=== PATIENT | female | born 1930 | race Caucasian/White ===

== ENCOUNTER 2017-04-04 12:36 | Inpatient (IN) | payer OTHER, BC ==
--- NOTE | 2017-04-04 12:52 | PDOC ---
History of Present Illness - General History Source: Family Exam Limitations: Dementia - History of Present Illness Initial Comments: 04/04/17 13:00 The patient is an 86-year-old woman, accompanied by her two sons, with a significant past medical history of Alzheimers dementia, hypertension and diabetes mellitus who was advised to present to the emergency department by her PMD, Dr. Micah Gauthier, via EMS for further evaluation of AMS. Information was obtained by patients sons, who lives with the patient and take care of her daily. As per son, the patient, at baseline, is typically alert and oriented and can perform some tasks at home. She is also a little ru and confused, at baseline, but they attribute this to her history of Alzheimers dementia. Approximately 3 days ago, the patient was noted to have a mild intermittent cough with yellow sputum with associated loss of appetite, but was still her normal self. Approximately 2 days ago, the patient was noted to be extremely weak, to the point where she did not transfer herself from chair to chair, and just stayed sitting down and feeling weak all day- which is atypical for the patient. She was also noted to shake. Patients PMD was called, for which he advised to give the patient some sugar. Chocolate and other sugary foods were given to the patient, and as per son, the patient was noted some improvement, as she was at her baseline state post sugar. This morning, the patient was noted to have similar symptoms, as the day prior, but worsen, as the patient now keeps her eyes closed and is more disoriented, as per family. She has also been noted to fall a lot at home especially when she stands without assistance. Patient's BGM on ER arrival was 259. Patient states that she feels lightheaded, Sons also note patient has not been eating/drinking as usual. No pain or other complaints including cp, abd pain, back pain, fever/chills, n/v, dysuria, diarrhea, melena, bpr. Allergies: No Known Drug Allergies. Past Surgical History: None reported Social History: Retired. No tobacco, EtOH and recreational drug use. Primary Care Physician: Dr. Micah Gauthier <Chloé Sandhu - Last Filed: 04/04/17 16:39> <Aubrey Thomson - Last Filed: 04/04/17 16:50> - General Chief Complaint: Altered Mental Status Stated Complaint: SUGAR PROBLEM Time Seen by Provider: 04/04/17 12:42 Past History <Chloé Sandhu - Last Filed: 04/04/17 16:39> - Past Medical History Dementia: Yes (ALZHEIMERS.) Diabetes: Yes HTN: Yes - Psycho/Social/Smoking Cessation Hx Anxiety: No Suicidal Ideation: No Smoking History: Current every day smoker Number of Cigarettes Smoked Daily: 5 Information on smoking cessation initiated: No Hx Alcohol Use: No Drug/Substance Use Hx: No Substance Use Type: None <BertoAubrey smith - Last Filed: 04/04/17 16:50> - Past Medical History Allergies/Adverse Reactions: Allergies Allergy/AdvReac Type Severity Reaction Status Date / Time No Known Allergies Allergy Verified 04/04/17 12:38 Home Medications: Ambulatory Orders Amlodipine Besylate [Norvasc -] 2.5 mg PO DAILY 04/04/17 Calcium Carbonate [Calcium] 10 mg PO DAILY 04/04/17 Lisinopril [Prinivil] 5 mg PO DAILY 04/04/17 Memantine HCl [Namenda -] 10 mg PO BID 04/04/17 Metformin HCl [Glucophage -] 500 mg PO BID 04/04/17 Oxybutynin Chloride [Ditropan -] 5 mg PO DAILY 04/04/17 Review of Systems - Review of Systems Able to Perform ROS?: Yes Comments:: 04/04/17 13:00 May be limited due to dementia Constitutional - + decreased appetite,shaky, generally weak no reported Fever, Chills, HEENT: no reported vision changes, sore throat Respiratory: +mild cough no reported sob, hemoptysis Cardiac: no reported chest pain, palpitations, light headedness, leg swelling Abd/GI: no reported abd pain, nausea, vomiting, blood per rectum, melena, diarrhea : no reported dysuria, frequency, discharge Musculskelatal - no reported back pain, joint swelling skin - no reported bruising, erythema, rash neurological: no reported headache, numbness, focal weakness, tingling, ataxia, hematologic: no reported anemia, easy bruising, easy bleeding <Chloé Sandhu - Last Filed: 04/04/17 16:39> *Physical Exam - Vital Signs Last Vital Signs Temp Pulse Resp BP Pulse Ox 74 18 108/54 92 L 04/04/17 12:36 04/04/17 12:36 04/04/17 12:36 04/04/17 12:36 - Physical Exam Comments: 04/04/17 13:00 GENERAL: The patient is awake, alert, and oriented x 2, Nontoxic - in no acute distress. HEAD: Normocephalic, atraumatic. EYES: extraocular movements intact, sclera anicteric, conjunctiva clear. ENT: Normal voice, dry mucous membranes with cracked lips NECK: Normal range of motion, supple LUNGS: Distant breath sounds, without audible wheezing/rales HEART: Regular rate and rhythm, normal S1 and S2 without murmur, rub or gallop. ABDOMEN: Soft, nontender, normoactive bowel sounds. No guarding, no rebound. No CVA tenderness EXTREMITIES: Normal range of motion, no edema. NEUROLOGICAL: No facial assymetry, Normal speech, moving all 4 extremities symmetrically. PSYCH: Normal mood, normal affect. SKIN: Warm, Dry, normal turgor. <Chléo Sandhu - Last Filed: 04/04/17 16:39> - Vital Signs Last Vital Signs Temp Pulse Resp BP Pulse Ox 74 18 108/54 92 L 04/04/17 12:36 04/04/17 12:36 04/04/17 12:36 04/04/17 12:36 <Aubrey Thomson - Last Filed: 04/04/17 16:50> Heart Score/ECG Review - ECG Impressions Comment:: 04/04/17 15:32 Twelve-lead EKG was performed and reviewed by me. There is normal sinus rhythm with a normal rate. Rate of 66 The axis is normal. The intervals are normal. There are no ST or T wave abnormalities. <Aubrey Thomson - Last Filed: 04/04/17 16:50> ED Treatment Course - LABORATORY CBC & Chemistry Diagram: 04/04/17 13:40 04/04/17 13:40 - RADIOLOGY Radiograph Interpretation: 04/04/17 14:12 EXAM: RAD/CHEST X-RAY PORTABLE Interpreted by Dr. Mario George IMPRESSION: A single view reveals rotation to the left, weak inspiration, sclerotic knob, normal joshua, normal heart and some left base atelectasis. The angles are sharp and the soft tissues are intact. There are degenerative changes. EXAM: CT/HEAD CT WITHOUT CONTRAST Interpreted by Dr. Maryana Dickson IMPRESSION: CT scan of the brain without intravenous contrast Since 05/21/2016 there remains generalized volume loss with moderate ventricular dilatation and mild chronic microvascular ischemic changes. No mass lesion, gross acute infarct or intracranial hemorrhage is identified. There is no shift of the midline structures. Calcification of the cavernous carotid arteries are present. Visualized paranasal sinuses and mastoid air cells are well aerated. The calvarium is intact <Chloé Sandhu - Last Filed: 04/04/17 16:39> - LABORATORY CBC & Chemistry Diagram: 04/04/17 13:40 04/04/17 13:40 <Aubrey Thomson - Last Filed: 04/04/17 16:50> Medical Decision Making - Medical Decision Making 04/04/17 16:[address] Micah Gauthier. <Chloé Sandhu - Last Filed: 04/04/17 16:39> - Medical Decision Making 04/04/17 13:04 86y F hx of htn, dementia, dm, presents with AMS - the pt was noted to be more confused and shaky over the psat 2-3 days, family called dr. gauthier who thought it might be her blood sugar and recommended some candy, which seemed to improve sypmtoms, but today the pt was the same so they came to the ED for evaluation. The pt denies any acute complaints including fever/chills, cough, n/ v, abd pain, back pain, headache, ddysuria/diarrhea. on exam the pt is aox2, with dry mmm, but otherwise fairly unremarkable and nonfocal exam. intitial BGM was 250s. differential for the pts sypmtoms includes occult infection, metabolic derangement, cva will ck cbc, cmp, trops, ua, cxr, will give fluids for hydratoin as pt appears dry will ck vbg 04/04/17 16:35 pt noted to have a leukoctysosi to 18 UA shows many bacteria but few rbc/wbc, and this was a cathed specimen --> there is a question whther the pt may have recently been on abx will discuss w/ dr. Gauthier bun/cr elevated c/w prerenal azotemia - will cntinue to hydrate cxr shows atelectasis 04/04/17 16:[address] hwang agree with management and stable for [facility] Case discussed in detail with admitting physician including history, physical exam and ancillary studies. Admitting physician has assumed care for the patient, will follow all pending diagnostics and will complete the evaluation and treatment. <Aubrey Thomson - Last Filed: 04/04/17 16:50> *DC/Admit/Observation/Transfer - Attestations Scribe Attestion: 04/04/17 13:00 Documentation prepared by Chloé Sandhu, acting as medical doctor md for Aubrey Thomson MD. <Chloé Sandhu - Last Filed: 04/04/17 16:39> - Discharge Dispostion Admit: Yes <Aubrey Thomson - Last Filed: 04/04/17 16:50> Diagnosis at time of Disposition: Prerenal azotemia Failure to thrive Qualifiers: Failure to thrive age range: in adult Qualified Code(s): R62.7 - Adult failure to thrive - Referrals Referrals: Micah Gauthier MD [Primary Care Provider] -
[2017-04-04] MEDS ORDERED: SODIUM CHLORIDE 500 ML IV STA ×3 (13:04→21:35)
[2017-04-04 13:35] LABS: VENOUS BLOOD GAS HCO3 26.8 meq/L (19-25); VENOUS PH 7.36 (7.32-7.42)
[2017-04-04 13:56] LABS: BASOPHIL 0.1 % (0-2.0); MCH 25.8 pg (25.7-33.7); MCHC 31.5 g/dl (32.0-36.0); MEAN CELL VOLUME 81.7 fl (80-96); MEAN PLT VOLUME 8.7 fl (7.5-11.1); NEUTROPHILS 80.9 % (42.8-82.8); PLATELET COUNT 232 K/MM3 (134-434); RDW 15.7 % (11.6-15.6); WHITE BLOOD COUNT 18.6 K/mm3 (4.0-10.0)
[2017-04-04 14:09] LABS: INR 1.14 (0.82-1.09); PROTHROMBIN TIME (PATIENT) 12.6 SEC (9.98-11.88)
[2017-04-04 14:22] LABS: ALBUMIN 3.9 g/dl (3.4-5.0); CALCIUM 9.5 mg/dL (8.5-10.1); COCKROFT - GAULT 17.2805; CREATININE 1.7 mg/dL (0.55-1.02); MAGNESIUM 1.8 mg/dL (1.8-2.4)
[2017-04-04 14:27] LABS: BILIRUBIN,TOTAL 0.6 mg/dL (0.2-1.0); TROPONIN I 0.02 ng/ml (0.00-0.05)
[2017-04-04 14:48] LABS: THYROID STIMULATING HORMONE 1.41 uIU/ml (0.358-3.74)
[2017-04-04 15:53] LABS: URINE APPEARANCE CLOUDY; URINE BILIRUBIN NEGATIVE (NEGATIVE); URINE COLOR YELLOW; URINE GLUCOSE (UA) NEGATIVE (NEGATIVE); URINE KETONE NEGATIVE (NEGATIVE); URINE LEUK ESTERASE NEGATIVE (NEGATIVE); URINE NITRITE NEGATIVE (NEGATIVE); URINE UROBILINOGEN NEGATIVE E.U./dl (0.2-1.0)
[2017-04-04 16:04] LABS: URINE BLOOD 2+ (NEGATIVE); URINE PROTEIN 2+ (NEGATIVE)
[2017-04-04 16:15] LABS: URINE BACTERIA MODERATE /hpf (NONE SEEN); URINE MUCUS RARE; URINE RBC 1 /hpf (0-3); URINE WBC 3 /hpf (3-5)
--- NOTE | 2017-04-04 20:34 | HP ---
CHIEF COMPLAINT: AMS PCP: Micah Gauthier HISTORY OF PRESENT ILLNESS: This is an 86-year-old woman with a history of Alzheimers, HTN and NIDDM who was sent to the emergency department by her PMD for evaluation of AMS. Information was obtained by patients sons, who live with the patient and take care of her daily. As per son Mario, the patient, at baseline, is typically alert and oriented and can perform some tasks at home. Approximately 3 days ago, the patient was noted to have a mild intermittent cough with yellow sputum with associated loss of appetite, but was still her normal self. Approximately 2 days ago, the patient was noted to be extremely weak and shaking. Patients PMD was called, for which he advised to give the patient some sugar. Chocolate was given to the patient and the patient returned to her baseline after sugar. The patient had a similar episode this morning but remained with her eyes closed and is more disoriented, as per son. She has also been noted to fall a lot at home especially when she stands without assistance. Evaluated by PMD 04/02/17 and he changed dose of Namenda. Patient denies c/o at present but is unreliable. ER course was notable for: (1) WBC 18.6 (2) Bacteria on UA (3) negative CTH Recent Travel: none per son PAST MEDICAL HISTORY: Alzheimer's, HTN, NIDDM PAST SURGICAL HISTORY: denies Social History: Smoking: current daily smoker 70 pack years per son Alcohol: none per son Drugs: none per son Allergies No Known Allergies Allergy (Verified 04/04/17 12:38) HOME MEDICATIONS: Home Medications 3 Medication Instructions Recorded Amlodipine Besylate [Norvasc -] 2.5 mg PO DAILY 04/04/17 Calcium Carbonate [Calcium] 10 mg PO DAILY 04/04/17 Lisinopril [Prinivil] 5 mg PO DAILY 04/04/17 Memantine HCl [Namenda -] 10 mg PO BID 04/04/17 Metformin HCl [Glucophage -] 500 mg PO BID 04/04/17 Oxybutynin Chloride [Ditropan -] 5 mg PO DAILY 04/04/17 REVIEW OF SYSTEMS as reported by son Mario Whit as patient is unreliable CONSTITUTIONAL: generalized weakness, loss of appetite Absent: fever, chills, diaphoresis, malaise, weight change HEENT: Absent: rhinorrhea, nasal congestion, throat pain, throat swelling, difficulty swallowing, mouth swelling, ear pain, eye pain, visual changes CARDIOVASCULAR: Absent: chest pain, syncope, palpitations, irregular heart rate, lightheadedness , peripheral edema RESPIRATORY: cough Absent: shortness of breath, dyspnea with exertion, orthopnea, wheezing, stridor, hemoptysis GASTROINTESTINAL: Absent: abdominal pain, abdominal distension, nausea, vomiting, diarrhea, constipation, melena, hematochezia GENITOURINARY: Absent: dysuria, frequency, urgency, hesitancy, hematuria, flank pain, genital pain MUSCULOSKELETAL: Absent: myalgia, arthralgia, joint swelling, back pain, neck pain SKIN: Absent: rash, itching, pallor HEMATOLOGIC/IMMUNOLOGIC: Absent: easy bleeding, easy bruising, lymphadenopathy, frequent infections ENDOCRINE: Absent: unexplained weight gain, unexplained weight loss, heat intolerance, cold intolerance NEUROLOGIC: shaking Absent: headache, focal weakness or paresthesias, dizziness, unsteady gait, seizure, mental status changes, bladder or bowel incontinence PSYCHIATRIC: Absent: anxiety, depression, suicidal or homicidal ideation, hallucinations. PHYSICAL EXAMINATION Vital Signs - 24 hr 3 04/04/17 18:53 Temperature 98.0 F Pulse Rate [ 60 Left Apical] Respiratory 16 Rate Blood Pressure 134/72 [Left Arm] O2 Sat by Pulse 97 Oximetry (%) Laboratory Results - last 24 hr 3 04/04/17 04/04/17 04/04/17 13:03 13:12 13:40 WBC 18.6 H RBC 4.60 Hgb 11.9 Hct 37.6 MCV 81.7 MCHC 31.5 L RDW 15.7 H Plt Count 232 MPV 8.7 Neutrophils % 80.9 Lymphocytes % 13.6 Monocytes % 5.4 Eosinophils % 0.0 Basophils % 0.1 INR VBG pH 7.36 POC VBG pCO2 48.7 POC VBG pO2 24.3 L Mixed VBG HCO3 26.8 H Sodium Potassium Chloride Carbon Dioxide Anion Gap BUN Creatinine Creat Clearance w eGFR POC Glucometer Random Glucose Calcium Magnesium Total Bilirubin AST ALT Alkaline Phosphatase Creatine Kinase CK-MB (CK-2) Troponin I Total Protein Albumin TSH Urine Color Yellow Urine Appearance Cloudy Urine pH 5.0 Ur Specific [place] 1.025 Urine Protein 2+ H Urine Glucose (UA) Negative Urine Ketones Negative Urine Blood 2+ H Urine Nitrite Negative Urine Bilirubin Negative Urine Urobilinogen Negative Ur Leukocyte Esterase Negative Urine RBC 1 Urine WBC 3 Urine Bacteria Moderate Urine Mucus Rare Acetone, Qual 3 04/04/17 04/04/17 04/04/17 13:40 13:40 13:40 WBC RBC Hgb Hct MCV MCHC RDW Plt Count MPV Neutrophils % Lymphocytes % Monocytes % Eosinophils % Basophils % INR 1.14 VBG pH POC VBG pCO2 POC VBG pO2 Mixed VBG HCO3 Sodium 144 Potassium 4.4 Chloride 104 Carbon Dioxide 25 Anion Gap 15 BUN 59 H Creatinine 1.7 H Creat Clearance w eGFR 28.63 POC Glucometer Random Glucose 173 H Calcium 9.5 Magnesium 1.8 Total Bilirubin 0.6 AST 25 ALT 28 Alkaline Phosphatase 93 Creatine Kinase 462 H CK-MB (CK-2) 3.872 H Troponin I 0.02 Total Protein 8.0 Albumin 3.9 TSH 1.41 Urine Color Urine Appearance Urine pH Ur Specific [place] Urine Protein Urine Glucose (UA) Urine Ketones Urine Blood Urine Nitrite Urine Bilirubin Urine Urobilinogen Ur Leukocyte Esterase Urine RBC Urine WBC Urine Bacteria Urine Mucus Acetone, Qual Negative L 3 04/04/17 23:56 WBC RBC Hgb Hct MCV MCHC RDW Plt Count MPV Neutrophils % Lymphocytes % Monocytes % Eosinophils % Basophils % INR VBG pH POC VBG pCO2 POC VBG pO2 Mixed VBG HCO3 Sodium Potassium Chloride Carbon Dioxide Anion Gap BUN Creatinine Creat Clearance w eGFR POC Glucometer 163 Random Glucose Calcium Magnesium Total Bilirubin AST ALT Alkaline Phosphatase Creatine Kinase CK-MB (CK-2) Troponin I Total Protein Albumin TSH Urine Color Urine Appearance Urine pH Ur Specific [place] Urine Protein Urine Glucose (UA) Urine Ketones Urine Blood Urine Nitrite Urine Bilirubin Urine Urobilinogen Ur Leukocyte Esterase Urine RBC Urine WBC Urine Bacteria Urine Mucus Acetone, Qual GENERAL: Arousable to verbal stimuli. Oriented to person only. No acute distress. Cachectic appearing. HEAD: Normal with no signs of trauma. EYES: Pupils equal, round and reactive to light at 3mm, sclera anicteric, conjunctiva clear. No lid lag. EARS, NOSE, THROAT: Ears normal, nares patent, oropharynx clear without exudates. Mucous membranes dry. NECK: Normal range of motion, supple without lymphadenopathy, JVD, or masses. LUNGS: Breath sounds equal, clear to auscultation bilaterally. No wheezes, and no crackles. No accessory muscle use. HEART: Regular rate and rhythm, normal S1 and S2 without murmur, rub or gallop. ABDOMEN: Soft, nontender, not distended, normoactive bowel sounds, no guarding, no rebound, no masses. No hepatomegaly or splenomegaly. MUSCULOSKELETAL: Normal range of motion at all joints. No bony deformities or tenderness. No CVA tenderness. UPPER EXTREMITIES: 2+ pulses, warm, well-perfused. No cyanosis. No clubbing. No peripheral edema. LOWER EXTREMITIES: 2+ pulses, warm, well-perfused. No calf tenderness. No peripheral edema. NEUROLOGICAL: Normal speech. PSYCHIATRIC: Pleasant. Eyes remained closed during exam. Appropriate mood and affect. SKIN: Warm, dry, no rashes or lesions noted, normal capillary refill. Tenting of skin. ASSESSMENT/PLAN: This is an 86 yo woman with decrease in mental status and shaking today that was unresolved with sugar at home. Given leukocytosis, ?rigors. pancultured in the ED. Bacteria present on UA will treat with ceftriaxone. CTH without acute pathology. Swallow eval given cachexia, decreased PO intake and elevated CPK. P: AMS- UTI vs. LINDSAY vs. side effects of increased Namenda -rectal temp ?rigors -wood cx in ED -gentle hydration given age with no s/s heart failure FTT -TSH -speech and swallow -?SNF Leukocytosis -trend WBC -wood cx -empirically treat UTI UTI -urine cx -Rocephin LINDSAY -gentle hydration -repeat BMP HTN -well controlled -continue home meds NIDDM -BGM q6h -continue metformin F/E/N -diabetic diet -NS@75 -trend lytes DVT ppx -heparin 5000 bid Dispo: Patient needs inpatient care for her acute condition. Code Status: FULL CODE Visit type - Emergency Visit Emergency Visit: Yes ED Registration Date: 04/04/17 Care time: The patient presented to the Emergency Department on the above date and was hospitalized for further evaluation of their emergent condition. - New Patient This patient is new to me today: Yes Date on this admission: 04/17/17 - Critical Care Critical Care patient: No
[2017-04-04] MEDS ORDERED: DEXTROSE 50%-WATER 50 ML VIAL IVPUSH PRN (21:32)
[2017-04-04] MEDS ORDERED: ACETAMINOPHEN 1000 MG/100 ML VIAL (NON FORMULARY) IVPB PRN (21:34)
[2017-04-04] MEDS: MEMANTINE HCL 10 MG TABLET (FP) PO SCH (23:34)
[2017-04-04] MEDS: HEPARIN NA (PORCINE) 5,000 UNITS/ML 1ML VIAL SQ SCH (23:34)
[2017-04-05] MEDS ORDERED: SODIUM CHLORIDE 1,000 ML IV SCH (02:30)
[2017-04-05] MEDS: CEFTRIAXONE 50 ML IVPB SCH ×2 (03:23→10:53)
[2017-04-05] MEDS ORDERED: metFORMIN HCL 500 MG TABLET (FP) PO SCH (07:00)
[2017-04-05 08:31] LABS: BASOPHIL 0.4 % (0-2.0); EOSINOPHIL 0.9 % (0-4.5); MCH 26.1 pg (25.7-33.7); MCHC 32.1 g/dl (32.0-36.0); MEAN CELL VOLUME 81.2 fl (80-96); MEAN PLT VOLUME 8.4 fl (7.5-11.1); NEUTROPHILS 62.9 % (42.8-82.8); PLATELET COUNT 202 K/MM3 (134-434); RDW 15.7 % (11.6-15.6); WHITE BLOOD COUNT 12.2 K/mm3 (4.0-10.0)
[2017-04-05 08:45] LABS: CALCIUM 8.6 mg/dL (8.5-10.1); COCKROFT - GAULT 24.4885; CREATININE 1.2 mg/dL (0.55-1.02)
[2017-04-05] MEDS ORDERED: CEFTRIAXONE 50 ML IVPB SCH ×2 (10:00)
[2017-04-05] MEDS ORDERED: OXYBUTYNIN CHLORIDE 5 MG TABLET PO SCH (10:00)
[2017-04-05] MEDS ORDERED: LISINOPRIL 5 MG TABLET (FP) PO SCH (10:00)
[2017-04-05] MEDS ORDERED: CALCIUM CARBONATE PO SCH (10:00)
--- NOTE | 2017-04-05 10:49 | PN ---
Physical Exam: SUBJECTIVE: Patient seen and examined. She appears calm, she is verbal, however oriented to self. Per RN she has been sleeping mostly. OBJECTIVE: Vital Signs Period Temp Pulse Resp BP Sys/Villagran Pulse Ox Last 24 Hr 98.0 F-99.5 F 60-72 16-20 134-157/56-76 95-97 PE Neuro: alert, oriented to person, unaware of place or bday HEENT: poor oral hygiene, removable thick debris on tongue Pulm: L base crackles, + dry cough CV: s1 s2 rrr Abd: s nt nd +bs Ext: warm, no le edema Skin: intact, R sit bone bruising CBCD WBC 12.2 K/mm3 (4.0-10.0) H D 04/05/17 08:00 RBC 4.26 M/mm3 (3.60-5.2) 04/05/17 08:00 Hgb 11.1 GM/dL (10.7-15.3) 04/05/17 08:00 Hct 34.6 % (32.4-45.2) 04/05/17 08:00 MCV 81.2 fl (80-96) 04/05/17 08:00 MCHC 32.1 g/dl (32.0-36.0) 04/05/17 08:00 RDW 15.7 % (11.6-15.6) H 04/05/17 08:00 Plt Count 202 K/MM3 (134-434) 04/05/17 08:00 MPV 8.4 fl (7.5-11.1) 04/05/17 08:00 CMP Sodium 147 mmol/L (136-145) H 04/05/17 08:00 Potassium 3.7 mmol/L (3.5-5.1) 04/05/17 08:00 Chloride 112 mmol/L (98-107) H 04/05/17 08:00 Carbon Dioxide 27 mmol/L (21-32) 04/05/17 08:00 Anion Gap 8 (8-16) 04/05/17 08:00 BUN 51 mg/dL (7-18) H 04/05/17 08:00 Creatinine 1.2 mg/dL (0.55-1.02) H D 04/05/17 08:00 Creat Clearance w eGFR 28.63 (>60) 04/04/17 13:40 Calcium 8.6 mg/dL (8.5-10.1) 04/05/17 08:00 Total Bilirubin 0.6 mg/dL (0.2-1.0) 04/04/17 13:40 AST 25 U/L (15-37) 04/04/17 13:40 ALT 28 U/L (12-78) 04/04/17 13:40 Alkaline Phosphatase 93 U/L (45-117) 04/04/17 13:40 Total Protein 8.0 g/dl (6.4-8.2) 04/04/17 13:40 Albumin 3.9 g/dl (3.4-5.0) 04/04/17 13:40 04/04/17 04/05/17 13:40 08:00 Creatine Kinase 462 H CK-MB (CK-2) 3.872 H Troponin I 0.02 TSH 0.92 D Active Medications Generic Name Dose Route Start Last Admin Trade Name Beto PRN Reason Stop Dose Admin Acetaminophen 1,000 mg 04/04/17 21:34 Ofirmev Injection - IVPB 04/05/17 15:35 Q6H PRN FEVER OR PAIN Amlodipine Besylate 2.5 mg 04/05/17 10:00 Norvasc - PO DAILY [facility] Heparin Sodium (Porcine) 5,000 unit 04/04/17 22:00 04/04/17 23:34 Heparin - SQ 5,000 unit BID AGUS Administration Ceftriaxone Sodium 50 mls @ 100 mls/hr 04/05/17 02:45 04/05/17 03:23 Rocephin 1gm Ivpb (Pre-Docked) IVPB 100 mls/hr DAILY AGUS Administration Sodium Chloride 1,000 mls @ 75 mls/hr 04/05/17 11:00 1/2 Normal Saline IV ASDIR [facility] Insulin Aspart 1 vial 04/05/17 11:00 Novolog Vial Sliding Scale - SQ ACHS [facility] Protocol Memantine 10 mg 04/04/17 22:00 04/04/17 23:34 Namenda - PO 10 mg BID AGUS Administration Non-Formulary Medication 10 mg 04/05/17 10:00 Calcium Carbonate [Calcium] PO DAILY [facility] Oxybutynin Chloride 5 mg 04/05/17 10:00 Ditropan - PO DAILY AGUS Microbiology 04/04/17 12:41 Urine Culture - Preliminary Urine - Urine Clean Catch Lactose Fermenting Neg Bacilli CXR: L base atelectatic changes Assessment: 86 yaer old female with Alzheimers, HTN and NIDDM admitted with AMS , shaking and decreased PO intake. Plan: 1. UTI - Leukocytosis improved - Urine cx pre musa LFNB - Continue ceftriaxone (day 1) 2. AMS - Likely due to above +/- increased namenda dose - CT head negative - Follow blood cx 3. LINDSAY - Likely due to dehydration - Cr improving, baseline unknown - Change fluids 1/2 NS 75cc/hr x1L - Hold SHARAD 4. HTN - Norvasc 2.5mg daily - Hold lisinopril for LINDSAY 5. Failure to thrive/malnutrition - Dysphagia diet, magic cup, ensure - Speech and swallow consult - Will need to discuss fdc options/ services with son - TSH wnl 6. DM II - ISS, BGM ACHS - Hold Metformin 7. Dementia - Namenda 10mg BID 8. Overactive bladder - Will decrease home dose to 2.5mg BID as pt is elderly 9. DVT ppx - Heparin 5000 BID Visit type - Emergency Visit Emergency Visit: Yes ED Registration Date: 04/04/17 Care time: The patient presented to the Emergency Department on the above date and was hospitalized for further evaluation of their emergent condition. - New Patient This patient is new to me today: Yes Date on this admission: 04/05/17 - Critical Care Critical Care patient: No
[2017-04-05] MEDS: HEPARIN NA (PORCINE) 5,000 UNITS/ML 1ML VIAL SQ SCH ×2 (10:53→21:12)
[2017-04-05] MEDS: amLODIPine BESYLATE 2.5 MG TABLET (FP) PO SCH (10:53)
[2017-04-05] MEDS: MEMANTINE HCL 10 MG TABLET (FP) PO SCH ×2 (10:53→21:12)
[2017-04-05] MEDS ORDERED: SODIUM CHLORIDE 0.45% 1,000 ML IV SCH (11:00)
[2017-04-05] MEDS: INSULIN SLIDING SCALE (NOVOLOG) 1 VIAL SQ SCH ×3 (11:37→21:16)
[2017-04-05] MEDS ORDERED: INSULIN (NOVOLOG) ASPART 100 UNITS/ML 10ML VIAL ONE ×2 (11:47→22:28)
[2017-04-05] MEDS: SODIUM CHLORIDE 0.45% 1,000 ML IV SCH ×2 (14:20→22:40)
[2017-04-05] MEDS: MEGESTROL ACETATE 400 MG/10 ML UNIT DOSE CUP PO SCH (15:04)
[2017-04-06 05:05] VITALS: BMI 17.2
[2017-04-06] MEDS: INSULIN SLIDING SCALE (NOVOLOG) 1 VIAL SQ SCH ×4 (06:30→21:52)
[2017-04-06 07:28] LABS: BASOPHIL 0.5 % (0-2.0); EOSINOPHIL 0.5 % (0-4.5); MCH 25.7 pg (25.7-33.7); MCHC 31.7 g/dl (32.0-36.0); MEAN CELL VOLUME 81.1 fl (80-96); MEAN PLT VOLUME 8.5 fl (7.5-11.1); PLATELET COUNT 201 K/MM3 (134-434); RDW 15.9 % (11.6-15.6); WHITE BLOOD COUNT 12.5 K/mm3 (4.0-10.0)
[2017-04-06 07:52] LABS: ALBUMIN 3.1 g/dl (3.4-5.0); BILIRUBIN,TOTAL 0.8 mg/dL (0.2-1.0); CALCIUM 8.6 mg/dL (8.5-10.1); COCKROFT - GAULT 28.2455; TOT PROT 6.4 g/dl (6.4-8.2)
[2017-04-06] MEDS: MEMANTINE HCL 10 MG TABLET (FP) PO SCH ×2 (10:34→21:51)
[2017-04-06] MEDS: amLODIPine BESYLATE 2.5 MG TABLET (FP) PO SCH (10:34)
[2017-04-06] MEDS: OXYBUTYNIN CHLORIDE 5 MG TABLET PO SCH (10:34)
[2017-04-06] MEDS: MEGESTROL ACETATE 400 MG/10 ML UNIT DOSE CUP PO SCH (10:34)
[2017-04-06] MEDS: HEPARIN NA (PORCINE) 5,000 UNITS/ML 1ML VIAL SQ SCH ×2 (10:34→21:51)
[2017-04-06] MEDS: CEFTRIAXONE 50 ML IVPB SCH (10:35)
--- NOTE | 2017-04-06 10:46 | EKG ---
Test Reason : Blood Pressure : / mmHG Vent. Rate : 066 BPM Atrial Rate : 066 BPM P-R Int : 134 ms QRS Dur : 072 ms QT Int : 402 ms P-R-T Axes : 002 082 064 degrees QTc Int : 421 ms NORMAL SINUS RHYTHM NORMAL ECG NO PREVIOUS ECGS AVAILABLE Confirmed by GENNY NAIR MD ([id number]) on 04/06/2017 10:45:47 AM Referred By: Confirmed By:GENNY NAIR MD
[2017-04-06] MEDS ORDERED: INSULIN (NOVOLOG) ASPART 100 UNITS/ML 10ML VIAL ONE (12:07)
[2017-04-06] MEDS: SODIUM CHLORIDE 0.45% 1,000 ML IV SCH (12:09)
--- NOTE | 2017-04-06 15:13 | CONSULT ---
Admitting History and Physical - Smoking History Smoking history: Current every day smoker Have you smoked in the past 12 months: Yes Aproximately how many cigarettes per day: 5 - Alcohol/Substance Use Hx Alcohol Use: No History - Admission Reason For Visit: PRERENAL AZOTEMIA, FAILURE TO THRIVE - Hearing Hearing: Normal Hearing Aide: No Speech Evaluation - Communication Communication: Yes: Simple Responses (contfusion at times. 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) - Speech Production Apraxia: No Able to Make Needs Known: Yes: Mildly Impaired Intelligibility: Yes: Mildly Impaired - Speech Characteristics Voice Loudness: Mildly Soft/Quiet Voice Pitch: Yes: Limited Variation Voice Phonatory-based Quality: Yes: Breathy, Weak Speech Pattern: Normal Nasal Resonance: Normal Articulation: Yes: Precise Rate of Speech: Intact Voice, Other Observations: Yes: Progressively Weak Voice - Language/Auditory Comprehension Follows: Yes: 1 Stage Simple Commands Observation: Able to respond to yes/no queries: Yes, Yes/No Confusion: No, Comprehends Conversational Speech: Yes, Benefits from Slow Speech: Yes, Benefits from Repetiton: Yes, Benefits from Increased Volume of Speech: No - Language/Verbal Expression Able to Respond to Simple Queries: Yes: WNL Able to Communicate Wants and Needs: Yes: Mildly Impaired Aware of Errors: No Attempts to Correct Errors: No Use of Gestures: No Attention: Yes: Minimal Impairment - 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 Jaw Position: Closed at Rest Against Resistance Opening: Normal Against Resistance Closing: Normal Pucker Lips: Normal Smile: Normal Lips, Comment: WFL for speech and swallowing purposes. Lingual Movement: Normal Lingual Speed of Movement: Reduced Lingual Movement Strgth Against Opposition: Normal Lingual Movement Characteristics: Normal Lingual Comment: WFL for speech and swallowing purposes. Soft Palate Description: Normal Color, High Arch Hard Palate Description: Normal Color, High Arch Gag Reflex: Weak Bite Reflex: Present Velopharyngeal Movement: Normal Laryngeal Elevation: WFL Laryngeal Movement: Able to Palpate Needs Assistance: Yes Rate of Intake: Slow/Holding Bolus Size: WFL Labial Seal: WFL Chewing: Impaired (secondary to dental status.) Oral Prep Time: WFL A-P Transit: Impaired (increased A-P time with pureed.) Pocketing: None Timing of Swallow: Delayed (mildly pharyngeal delayed) Odynophagia: Oral (secondary to dental status), Pharyngeal (mild 2-3 second average.) Coughing/Throat Clear: No Change in Voice: No Other Findings/Remarks: 86 yo female seen at chairside on unit for swallow eval to rule out dysphagia. Pt is verbal, confused at times, cooperative, A&Ox1. Pt presents with Alz dementia, HTN, UTI. Admitted to [facility] for AMS, reduced oral intake and FTT. current diet is dysphagia pureed and thin liquids. Pt given po trials of puree only with total assistance revealed good acceptance , adequate bolus control, increased oral transit time and mildly delayed pharyngeal swallows with no coughing or changes in respiration. Pt given po trials of ice chips and thin via cup was unremarkable for dysphagia and/or aspiration at this time. Recommendations - Speech Evaluation, Impression/Plan Impression: Pt present with reduced vocal quality and dysphagia for purees and thin liquids. No evidence of aspiration on any consistency offered at this time. Residential Goals: tolerate the least restrictive diet without s/s of aspiration Short Term Goals: tolerate pureed and thin liquids diet without s/s of aspiration - Dysphagia Impressions/Plan Swallowing Skills: Impaired Dysphagia Impressions: Mild Impairment (Oral phase dysphagia for solids and pharyngeal phase dysphagia for solids and liquids.) Dysphagia Treatment Plan: Safe Rate, 1/2 tsp. at a time, Elevate HOB during feed , OOB for meals, OOB for 1 h. after meals, Other (Monitor nutritional intake and pulmonary status.) Dysphagia Evaluation Summary: Recommendations: Continue dysphagia puree with thin liquids as tolerated. Ideally OOB upright for meals and 30-60 post meal. Crush meds in purees or applesauce. Results given verbally to charge master coordinator and technical inspector. Report to pcp via chart.
--- NOTE | 2017-04-06 16:32 | PN ---
Physical Exam: SUBJECTIVE: Patient seen and examined a few times today 0900: patient resting in bed in no acute distress. Alert to self, family not in room. 1630: called by primary RN that patient fell in front of the nurses station while sitting in the wheelchair and being monitored by the aide. This fall was witnessed by multiple staff members. As per staff, patient was sitting in the WC and when she attempted to get up OOB the WC, aide assisted in maintaining her safety and in doing so, fell with the patient. Unclear whether patient hit her head, but will order CT scan of head.. OBJECTIVE: Head CT s/p fall - pt on heparin I called her son Mario Stevens and advised him of the fall. No obvious physical injuries s/p fall Vitals signs stable [place] vest for tonight for safety Vital Signs Period Temp Pulse Resp BP Sys/Villagran Pulse Ox Last 24 Hr 97.1 F-98.8 F 65-90 19-20 149-160/62-73 94 GENERAL: The patient is awake, alert, in no acute distress. She is oriented to self. HEAD: Normal with no signs of trauma - head CT ordered EYES: Facial symmetry ENT: Ears normal, nares patent, oropharynx clear without exudates, moist mucous membranes. NECK: Trachea midline, full range of motion, supple. LUNGS: anterior sounds with diminished breath sounds HEART: Regular rate and rhythm, S1, S2 without murmur, rub or gallop. ABDOMEN: Soft, nontender, mildly distended abdomen. EXTREMITIES: 2+ pulses, warm, well-perfused, no edema. NEUROLOGICAL: Normal speech, gait not observed. PSYCH: Normal mood, normal affect. SKIN: Warm, dry, normal turgor, no rashes or lesions noted Laboratory Results - last 24 hr 04/05/17 04/05/17 04/06/17 17:08 21:13 06:00 WBC 12.5 H RBC 4.09 Hgb 10.5 L Hct 33.2 MCV 81.1 MCHC 31.7 L RDW 15.9 H Plt Count 201 MPV 8.5 Neutrophils % 61.0 Lymphocytes % 28.8 Monocytes % 9.2 Eosinophils % 0.5 Basophils % 0.5 Sodium Potassium Chloride Carbon Dioxide Anion Gap BUN Creatinine Creat Clearance w eGFR POC Glucometer 87 298 Random Glucose Calcium Total Bilirubin AST ALT Alkaline Phosphatase Total Protein Albumin 04/06/17 04/06/17 04/06/17 06:00 06:29 12:03 WBC RBC Hgb Hct MCV MCHC RDW Plt Count MPV Neutrophils % Lymphocytes % Monocytes % Eosinophils % Basophils % Sodium 145 Potassium 3.7 Chloride 108 H Carbon Dioxide 23 Anion Gap 14 BUN 39 H D Creatinine 1.0 Creat Clearance w eGFR 52.82 POC Glucometer 94 159 Random Glucose 83 Calcium 8.6 Total Bilirubin 0.8 D AST 34 D ALT 26 Alkaline Phosphatase 62 D Total Protein 6.4 Albumin 3.1 L D Active Medications Generic Name Dose Route Start Last Admin Trade Name Freq PRN Reason Stop Dose Admin Amlodipine Besylate 2.5 mg 04/05/17 10:00 04/06/17 10:34 Norvasc - PO 2.5 mg DAILY AGUS Administration Heparin Sodium (Porcine) 5,000 unit 04/04/17 22:00 04/06/17 10:34 Heparin - SQ 5,000 unit BID AGUS Administration Ceftriaxone Sodium 50 mls @ 100 mls/hr 04/05/17 02:45 04/06/17 10:35 Rocephin 1gm Ivpb (Pre-Docked) IVPB 100 mls/hr DAILY AGUS Administration Sodium Chloride 1,000 mls @ 75 mls/hr 04/06/17 11:45 04/06/17 12:09 1/2 Normal Saline IV 75 mls/hr ASDIR AGUS Administration Insulin Aspart 1 vial 04/05/17 11:00 04/06/17 12:09 Novolog Vial Sliding Scale - SQ 2 units ACHS AGUS Administration Protocol Megestrol Acetate 400 mg 04/05/17 14:45 04/06/17 10:34 Megace Oral Suspension - PO 400 mg DAILY AGUS Administration Memantine 10 mg 04/04/17 22:00 04/06/17 10:34 Namenda - PO 10 mg BID AGUS Administration Oxybutynin Chloride 2.5 mg 04/05/17 10:59 04/06/17 10:34 Ditropan - PO 2.5 mg DAILY AGUS Administration ASSESSMENT/PLAN: Patient is an 86 year old female with a significant past medical history of Alzheimers dementia, hypertension and diabetes mellitus. She presented to the ED on 04/04/2017 with alert mental status and rigors. Her family also reported pt had FTT at home. ID: Urinary Tract Infection Assessment/Plan: WBC trending down Urine culture +Ecoli Patient of Ceftriaxone (day 2) Monitor vitals, monitor labs Metabolic encephalopathy in the setting of UTI and diabetes - acute Assessment/Plan: AMS Likely secondary to UTI and diabetes Initial CT head negative, repeat CT s/p fall negative History of Alzheimers dementia Rigors on admission, but have now resolved Risk factors acute kidney injury, UTI, elderly patient with dementia On Ceftriaxone since 04/05/2017, hydration with 1/2 NS @ 75cc/hr Monitor confusion/Altered mental status closely for improvement Renal: Assessment/Plan: Monitor bun creat On 1/2 NS @ 75cc/hr Cardiology: Hypertension - controlled Assessment/Plan: On Norvasc 2.5mg daily Monitor Failure to thrive Assessment/Plan: RD following Encourage PO intake On supplements Endocrine: DM II Assessment/Plan: Hold Metformin On sliding scale F.E.N. Fluids: 1/2 NS @ 75cc/hr Electrolytes: monitor BMP Nutrition: Prophylaxis: DVT: Heparin BID GI: Colace Visit type - Emergency Visit Emergency Visit: Yes ED Registration Date: 04/04/17 Care time: The patient presented to the Emergency Department on the above date and was hospitalized for further evaluation of their emergent condition. - New Patient This patient is new to me today: Yes Date on this admission: 04/11/17 - Critical Care Critical Care patient: No - Discharge Referral Referred to [facility] Med P.C.: No
--- NOTE | 2017-04-06 18:22 | FALL ---
Fall Exam - Event Witnessed fall: Yes Location of Fall: Hallway Fall from: Wheel Chair - Pre-Fall Fall Risk: High Risk Current Medications: Current Medications Generic Name Dose Route Start Last Admin Trade Name Beto PRN Reason Stop Dose Admin Amlodipine Besylate 2.5 mg 04/05/17 10:00 04/06/17 10:34 Norvasc - PO 2.5 mg DAILY AGUS Administration Heparin Sodium (Porcine) 5,000 unit 04/04/17 22:00 04/06/17 10:34 Heparin - SQ 5,000 unit BID AGUS Administration Ceftriaxone Sodium 50 mls @ 100 mls/hr 04/05/17 02:45 04/06/17 10:35 Rocephin 1gm Ivpb (Pre-Docked) IVPB 100 mls/hr DAILY AGUS Administration Sodium Chloride 1,000 mls @ 75 mls/hr 04/06/17 11:45 04/06/17 12:09 1/2 Normal Saline IV 75 mls/hr ASDIR AGUS Administration Insulin Aspart 1 vial 04/05/17 11:00 04/06/17 17:52 Novolog Vial Sliding Scale - SQ 4 units ACHS AGUS Administration Protocol Megestrol Acetate 400 mg 04/05/17 14:45 04/06/17 10:34 Megace Oral Suspension - PO 400 mg DAILY AGUS Administration Memantine 10 mg 04/04/17 22:00 04/06/17 10:34 Namenda - PO 10 mg BID AGUS Administration Oxybutynin Chloride 2.5 mg 04/05/17 10:59 04/06/17 10:34 Ditropan - PO 2.5 mg DAILY AGUS Administration - Post-Fall Patient Outcome: No Injury Vital Signs: Vital Signs Temperature 99.0 F 04/06/17 17:33 Pulse Rate 78 04/06/17 17:33 Respiratory Rate 20 04/06/17 17:33 Blood Pressure 153/78 04/06/17 17:33 O2 Sat by Pulse Oximetry (%) 94 L 04/05/17 21:00 LOC Post-Fall: Unchanged Identify factors for HIGH RISK for Head Injury: Pt on anticoagulant Critical Care Total Critical Care Time (in minutes): 45 Critical Care Statement: The care of this patient involved high complexity decision making to prevent further life threatening deterioration of the patient 's condition and/or to evalute & treat vital organ system(s) failure or risk of failure.
[2017-04-07] MEDS: INSULIN SLIDING SCALE (NOVOLOG) 1 VIAL SQ SCH ×2 (05:59→13:04)
[2017-04-07 07:43] LABS: BASOPHIL 0.2 % (0-2.0); EOSINOPHIL 0.6 % (0-4.5); MCH 26.1 pg (25.7-33.7); MCHC 32.5 g/dl (32.0-36.0); MEAN CELL VOLUME 80.3 fl (80-96); MEAN PLT VOLUME 8.5 fl (7.5-11.1); NEUTROPHILS 56.9 % (42.8-82.8); PLATELET COUNT 186 K/MM3 (134-434); RDW 15.2 % (11.6-15.6); WHITE BLOOD COUNT 12.1 K/mm3 (4.0-10.0)
[2017-04-07 08:16] LABS: ALBUMIN 2.9 g/dl (3.4-5.0); BILIRUBIN,TOTAL 0.6 mg/dL (0.2-1.0); CALCIUM 7.9 mg/dL (8.5-10.1); COCKROFT - GAULT 28.2455; TOT PROT 6.1 g/dl (6.4-8.2)
[2017-04-07] MEDS: SODIUM CHLORIDE 0.45% 1,000 ML IV SCH (10:53)
[2017-04-07] MEDS: CEFTRIAXONE 50 ML IVPB SCH (10:53)
[2017-04-07] MEDS: MEGESTROL ACETATE 400 MG/10 ML UNIT DOSE CUP PO SCH (10:54)
[2017-04-07] MEDS: OXYBUTYNIN CHLORIDE 5 MG TABLET PO SCH (10:54)
[2017-04-07] MEDS: amLODIPine BESYLATE 2.5 MG TABLET (FP) PO SCH (10:54)
[2017-04-07] MEDS: HEPARIN NA (PORCINE) 5,000 UNITS/ML 1ML VIAL SQ SCH (10:54)
[2017-04-07] MEDS: MEMANTINE HCL 10 MG TABLET (FP) PO SCH (10:54)
[2017-04-07] MEDS ORDERED: CIPROFLOXACIN 500 MG TABLET (RESTRICTED TO ID) PO SCH (12:15)
[2017-04-07] MEDS ORDERED: DONEPEZIL HCL 10 MG TABLET (FP) PO SCH (12:15)
--- NOTE | 2017-04-07 12:18 | DS ---
Physical Exam: SUBJECTIVE: Patient seen and examined. Family at the bedside. OBJECTIVE: WBC 18.6>12.1 Spoke with patient's PCP Dr. Micah Gauthier and discussed admission , vitals and labs PCP asked pt to be put on Cipro 500mg BID x 5 days and follow up with him tomorrow for repeat labs PCP also states patient is on Aricept 10mg daily patient is has improved since admission, needs follow up with PCP whom I spoke to in detail Vital Signs Period Temp Pulse Resp BP Sys/Villagran Pulse Ox Last 24 Hr 97.5 F-99.4 F 65-79 19-20 140-153/58-80 95 PHYSICAL EXAM GENERAL: The patient is awake, alert, in no acute distress. She is oriented to self. HEAD: Normal with no signs of trauma - head CT ordered EYES: Facial symmetry ENT: Ears normal, nares patent, oropharynx clear without exudates, moist mucous membranes. NECK: Trachea midline, full range of motion, supple. LUNGS: anterior sounds with diminished breath sounds HEART: Regular rate and rhythm, S1, S2 without murmur, rub or gallop. ABDOMEN: Soft, nontender, mildly distended abdomen. EXTREMITIES: 2+ pulses, warm, well-perfused, no edema. NEUROLOGICAL: Normal speech, gait not observed. PSYCH: Normal mood, normal affect. SKIN: Warm, dry, normal turgor, no rashes or lesions noted LABS Laboratory Results - last 24 hr 04/06/17 04/06/17 04/06/17 12:03 17:42 20:37 WBC RBC Hgb Hct MCV MCHC RDW Plt Count MPV Neutrophils % Lymphocytes % Monocytes % Eosinophils % Basophils % Sodium Potassium Chloride Carbon Dioxide Anion Gap BUN Creatinine Creat Clearance w eGFR POC Glucometer 159 239 259 Random Glucose Calcium Total Bilirubin AST ALT Alkaline Phosphatase Total Protein Albumin 04/07/17 04/07/17 04/07/17 05:44 06:00 06:00 WBC 12.1 H RBC 4.06 Hgb 10.6 L Hct 32.6 MCV 80.3 MCHC 32.5 RDW 15.2 Plt Count 186 MPV 8.5 Neutrophils % 56.9 Lymphocytes % 33.1 Monocytes % 9.2 Eosinophils % 0.6 Basophils % 0.2 Sodium 142 Potassium 3.5 Chloride 107 Carbon Dioxide 24 Anion Gap 11 BUN 30 H D Creatinine 1.0 Creat Clearance w eGFR 52.82 POC Glucometer 95 Random Glucose 83 Calcium 7.9 L Total Bilirubin 0.6 D AST 30 ALT 27 Alkaline Phosphatase 62 Total Protein 6.1 L Albumin 2.9 L HOSPITAL COURSE: Date of Admission:04/04/17 Date of Discharge: 04/07/17 Patient is an 86 year old female with a significant past medical history of Alzheimers dementia, hypertension and diabetes mellitus. She presented to the ED on 04/04/2017 with alert mental status and rigors. Her family also reported pt had FTT at home. ID: Urinary Tract Infection - improving Assessment/Plan: WBC trending down 18.6>12.1 Urine culture +Ecoli Patient received 3 days of Ceftriaxone and now will be converted to Cipro 500mg BID x 5 days Spoke with patient's physician Micah Gauthier MD who will see patient in his office tomorrow Confusion/Altered mental status - s/p fall Assessment/Plan: Likely secondary to UTI - monitor as outpt, pt has baseline alzheimers dementia Initial CT head negative, repeat CT s/p fall negative Renal: Assessment/Plan: Monitor bun creat discussed with Dr. Gauthier who will repeat blood work Cardiology: Hypertension - controlled Assessment/Plan: On Norvasc 2.5mg daily Monitor Failure to thrive: Assessment/Plan: Encourage PO intake On pureed diet and thin liquids s/p swallow evaluation On supplements Endocrine: DM II Assessment/Plan: On home Metformin monitor blood sugars disposition: discharge home with follow up with Dr. Micah Gauthier as an outpatient. Full Code. Minutes to complete discharge: 45 Discharge Summary Reason For Visit: PRERENAL AZOTEMIA, FAILURE TO THRIVE Current Active Problems Failure to thrive (Acute) Prerenal azotemia (Acute) - Instructions Diet, Activity, Other Instructions: Mrs Sherman: Please take the antibiotics as prescribed and follow up with your primary care physician Dr. Gauthier tomorrow. Dr. Gauthier is aware of your hospitalization and would like to see you once your are discharge. Please return to the ER with any new or worsening symptoms. Diet: Please encourage adequate protein and calorie intake. Recommend Glucerna three times per day with meals Monitor blood sugars before meals Pureed diet, thin liquids recommended Beatriz Pavon, RAUL [phone] Referrals: Micah Gauthier MD [Primary Care Provider] - - Home Medications Comprehensive Discharge Medication List: Ambulatory Orders Amlodipine Besylate [Norvasc -] 2.5 mg PO DAILY 04/04/17 Calcium Carbonate [Calcium] 10 mg PO DAILY 04/04/17 Lisinopril [Prinivil] 5 mg PO DAILY 04/04/17 Memantine HCl [Namenda -] 10 mg PO BID 04/04/17 Metformin HCl [Glucophage -] 500 mg PO BID 04/04/17 Oxybutynin Chloride [Ditropan -] 5 mg PO DAILY 04/04/17 This patient is new to me today: No Emergency Visit: Yes ED Registration Date: 04/04/17 Care time: The patient presented to the Emergency Department on the above date and was hospitalized for further evaluation of their emergent condition. Critical Care patient: No - Discharge Referral Referred to [facility] Med P.C.: No
[2017-04-07 14:08] VITALS: BP 134/53; PULSE 66; TEMP 98.8
== END 2017-04-07 15:54 | disposition home or self-care (01) | DRG 689 ==
LOC: JER 12:36 → SUPCPDRO 12:36 → JERBED 16:49 → J7W 19:46
PROVIDERS: ADMIT Emergency Medicine; ATTEND Nurse Practitioner Family
DX: N39.0 Urinary tract infection, site not specified (principal); G93.41 Metabolic encephalopathy; N17.9 Acute kidney failure, unspecified; E46 Unspecified protein-calorie malnutrition; Z68.1 Body mass index [BMI] 19.9 or less, adult; R62.7 Adult failure to thrive; I10 Essential (primary) hypertension; E11.9 Type 2 diabetes mellitus without complications; G30.9 Alzheimer's disease, unspecified; F02.80 Dementia in other diseases classified elsewhere, unspecified severity, without behavioral disturbance, psychotic disturbance, mood disturbance, and anxiety; B96.20 Unspecified Escherichia coli [E. coli] as the cause of diseases classified elsewhere; R41.82 Altered mental status, unspecified; F17.210 Nicotine dependence, cigarettes, uncomplicated; E86.0 Dehydration; D72.829 Elevated white blood cell count, unspecified
CPT/HCPCS: 36415; 70450-TC; 71010-TC; 80048; 80053; 81003; 81015; 82009; 82550; 82553; 82803; 83735; 84443; 84484; 85025; 85610; 87040; 87086; 87186; 93005; 93010; 99284-25; J1644

== ENCOUNTER 2017-08-09 14:07 | Emergency (ER) | payer OTHER, BC ==
[2017-08-09 14:29] VITALS: TEMP 98; BMI 17.7
--- NOTE | 2017-08-09 15:47 | PDOC ---
History of Present Illness - General History Source: Patient Exam Limitations: No Limitations - History of Present Illness Initial Comments: 08/09/17 15:48 Patient is a 87 year old female with a significant past medical history of Alzheimers, HTN and NIDDM who presents to the ED s/p fall that occurred 2 hours ago. Patient's son on reports patient walked up four steps before falling backwards from the top of the staircase. Patient reports head pain secondary to the fall. Patient reports the head pain is a localized non radiating pain. Medication Donepezil , Namenda , Amlodipine , Rosuvastatin , Lisinopril , Oxybutynin Denies any blood thinner. Denies loss of consciousness. Denies headache, Loss of consciousness. Denies SOB, chest pain. Denies fever, chills. Denies nausea, vomiting. Allergies: None Social history: Retired smoker. No alcohol. No drugs. Surgical history: None PMD: None <Pk Roberts - Last Filed: 08/09/17 15:47> <Kareem Ritter - Last Filed: 08/09/17 16:53> - General Chief Complaint: Injury Stated Complaint: INJURY Time Seen by Provider: 08/09/17 14:38 Past History <Pk Roberts - Last Filed: 08/09/17 15:47> - Past Medical History Dementia: Yes (ALZHEIMERS) Diabetes: Yes HTN: Yes - Psycho/Social/Smoking Cessation Hx Anxiety: No Suicidal Ideation: No Smoking History: Never smoked Have you smoked in the past 12 months: No Number of Cigarettes Smoked Daily: 5 Information on smoking cessation initiated: No 'Breaking Loose' booklet given: 04/05/17 Hx Alcohol Use: No Drug/Substance Use Hx: No Substance Use Type: None <Kareem Ritter - Last Filed: 08/09/17 16:53> - Past Medical History Allergies/Adverse Reactions: Allergies Allergy/AdvReac Type Severity Reaction Status Date / Time No Known Allergies Allergy Verified 08/09/17 14:23 Home Medications: Ambulatory Orders Amlodipine Besylate [Norvasc -] 2.5 mg PO DAILY 04/04/17 Lisinopril [Prinivil] 5 mg PO DAILY 04/04/17 Memantine HCl [Namenda -] 10 mg PO BID 04/04/17 Metformin HCl [Glucophage -] 500 mg PO BID 04/04/17 Oxybutynin Chloride [Ditropan -] 5 mg PO DAILY 04/04/17 Donepezil HCl [Aricept -] 10 mg PO DAILY #30 tablet 04/07/17 Rosuvastatin [Crestor -] 10 mg PO DAILY 08/09/17 Review of Systems - Review of Systems Able to Perform ROS?: Yes Comments:: 08/09/17 15:48 GENERAL/CONSTITUTIONAL: No fever or chills. No weakness. HEAD, EYES, EARS, NOSE AND THROAT: +Head pain. No change in vision. No ear pain or discharge. No sore throat. CARDIOVASCULAR: No chest pain or shortness of breath. RESPIRATORY: No cough, wheezing, or hemoptysis. GASTROINTESTINAL: No nausea, vomiting, diarrhea or constipation. GENITOURINARY: No dysuria, frequency, or change in urination. MUSCULOSKELETAL: No joint or muscle swelling or pain. No neck or back pain. SKIN: No rash NEUROLOGIC: No headache, vertigo, loss of consciousness, or change in strength/ sensation. ENDOCRINE: No increased thirst. No abnormal weight change. HEMATOLOGIC/LYMPHATIC: No anemia, easy bleeding, or history of blood clots. ALLERGIC/IMMUNOLOGIC: No hives or skin allergy. All Other Systems: Reviewed and Negative <Pk Roberts - Last Filed: 08/09/17 15:47> *Physical Exam - Vital Signs Last Vital Signs Temp Pulse Resp BP Pulse Ox 98.0 F 68 18 154/60 100 08/09/17 14:24 08/09/17 14:24 08/09/17 14:24 08/09/17 14:24 08/09/17 14:24 - Physical Exam Comments: 08/09/17 15:48 GENERAL: Awake, alert, and fully oriented, in no acute distress HEAD: +Hematoma EYES: PERRLA, EOMI, sclera anicteric, conjunctiva clear ENT: Auricles normal inspection, hearing grossly normal, nares patent, oropharynx clear without exudates. Moist mucosa NECK: Normal ROM, supple, no lymphadenopathy, JVD, or masses LUNGS: Breath sounds equal, clear to auscultation bilaterally. No wheezes, and no crackles HEART: Regular rate and rhythm, normal S1 and S2, no murmurs, rubs or gallops ABDOMEN: Soft, nontender, normoactive bowel sounds. No guarding, no rebound. No masses EXTREMITIES: Normal range of motion, no edema. No clubbing or cyanosis. No cords, erythema, or tenderness NEUROLOGICAL: Cranial nerves II through XII grossly intact. Normal speech, normal gait SKIN: Warm, Dry, normal turgor, no rashes or lesions noted. <Pk Roberts - Last Filed: 08/09/17 15:47> - Vital Signs Last Vital Signs Temp Pulse Resp BP Pulse Ox 98.0 F 68 18 154/60 100 08/09/17 14:24 08/09/17 14:24 08/09/17 14:24 08/09/17 14:24 08/09/17 14:24 <Kareem Ritter - Last Filed: 08/09/17 16:53> ED Treatment Course - RADIOLOGY Radiology Studies Ordered: Category Date Time Status HEAD CT WITHOUT CONTRAST [CT] Stat CT Scan 08/09/17 14:45 Ordered <Kareem Ritter - Last Filed: 08/09/17 16:53> *DC/Admit/Observation/Transfer - Attestations Scribe Attestion: 08/09/17 15:48 Documentation prepared by Pk Roberts, acting as medical fee clerk for Kareem Ritter MD/DO. <Pk Roberts - Last Filed: 08/09/17 15:47> - Attestations Physician Attestion: 08/09/17 15:47 I, Dr. Kareem Ritter, attest that this document has been prepared under my direction and personally reviewed by me in its entirety. I further attest, that it accurately reflects all work, treatment, procedures and medical decision -making performed by me. <Kareem Ritter - Last Filed: 08/09/17 16:53> Diagnosis at time of Disposition: Hematoma of scalp Qualifiers: Encounter type: initial encounter Qualified Code(s): S00.03XA - Contusion of scalp, initial encounter - Discharge Dispostion Disposition: HOME Condition at time of disposition: Unchanged/Unknown - Referrals Referrals: Micah Gauthier MD [Primary Care Provider] - - Patient Instructions Printed Discharge Instructions: DI for Closed Head Injury Additional Instructions: Mrs Sherman- Sorry this happened, There is nothing to sew or staple..... that may ooze blood for the next day or two and I am certain it will be very sore. Take Tylenol of discomfort and use an ice pack as much as possible. Return to us if any problems. Best- Dr. Kareem Ritter
[2017-08-09] MEDS ORDERED: DIPHTH,PERTUSS(ACELL),TET 0.5 ML DISP.SYRIN IM ONE (16:11)
[2017-08-09 17:12] VITALS: BP 148/62; PULSE 60
== END 2017-08-09 17:10 | disposition home or self-care (01) ==
LOC: JER 14:07
DX: S00.03XA Contusion of scalp, initial encounter (principal); W10.8XXA Fall (on) (from) other stairs and steps, initial encounter; Y93.89 Activity, other specified; Y92.018 Other place in single-family (private) house as the place of occurrence of the external cause; I10 Essential (primary) hypertension; E11.9 Type 2 diabetes mellitus without complications; Z79.84 Long term (current) use of oral hypoglycemic drugs; G30.9 Alzheimer's disease, unspecified; F02.80 Dementia in other diseases classified elsewhere, unspecified severity, without behavioral disturbance, psychotic disturbance, mood disturbance, and anxiety
CPT/HCPCS: 70450-TC; 90715; 99282-25

== ENCOUNTER 2019-05-23 12:06 | Inpatient (IN) | payer OTHER, BC ==
[2019-05-23] MEDS ORDERED: ACETAMINOPHEN INJECTION 100 ML IVPB ONE (12:16)
[2019-05-23] MEDS ORDERED: SODIUM CHLORIDE 1,225 ML IV ONE (12:18)
--- NOTE | 2019-05-23 12:18 | PDOC ---
Attending Attestation - ED Attending Attestation I have performed the following: I have examined & evaluated the patient, The case was reviewed & discussed with the resident, I agree w/resident's findings & plan, Exceptions are as noted - HPI HPI: 05/23/19 12:20 Ms Sherman is an 88 yo F who presents to the ER upon the recommendation of PMD Pt was brought to the PMDs office due to altered mental status Pt was last noted to be at her baseline yesterday evening This morning she seemed more lethargic compared to her baseline, leaning to the left No known fevers at home Rectal temp 100.4 Pt is limited responsiveness RRR Rhoncherous breath sounds Diffuse abd tenderness noted 05/24/19 09:05 - Physicial Exam PE: 05/23/19 12:28 GENERAL: The patient is minimally responsive ENT: Ears normal, nares patent, oropharynx clear without exudates. Moist mucous membranes. NECK: Normal range of motion, supple LUNGS: Rhoncherous breath sounds noted HEART:Regular rate and rhythm, normal S1 and S2 without murmur, rub or gallop. ABDOMEN: Soft, diffusely tender to palpation EXTREMITIES: Normal range of motion, no edema. NEUROLOGICAL: Pt not responsive to verbal stimuli SKIN: erythema of buttocks - Critical Care Time Total Critical Care Time: 60 Critical Care Statement: The care of this patient involved high complexity decision making to prevent further life threatening deterioration of the patient 's condition and/or to evaluate & treat vital organ system(s) failure or risk of failure. - Medical Decision Making 05/23/19 12:29 Given fever and hypotension, pt appears septic Unclear at this time the source Will do: Sepsis orderset Will assess Urine, CXR, Abdominal CT Will give IVF Will give broad spectrum abx once urine obtained Will admit to Dr Garcia's service 05/23/19 12:50 Laboratory Tests 05/23/19 12:21 VBG pH 7.16 L* POC VBG pCO2 48.1 POC VBG pO2 33.8 Vanc and Zosyn 05/23/19 13:49 Laboratory Tests 05/23/19 05/23/19 05/23/19 12:18 12:21 12:21 WBC 16.2 H Hgb 12.1 Hct 38.7 D Plt Count 257 D Sodium 137 Potassium 4.9 Chloride 103 Carbon Dioxide 18 L BUN 58.0 H Creatinine 3.8 H Random Glucose 345 H* Lactic Acid 7.6 H* Creatine Kinase 284 H Creatine Kinase Index 1.1 CK-MB (CK-2) 3.1 Troponin I 0.31 H Total Amylase 156 H Lipase 69 L Urine Blood Urine Nitrite Ur Leukocyte Esterase Stool Occult Blood Acetone, Qual 05/23/19 05/23/19 05/23/19 12:21 12:59 13:00 WBC Hgb Hct Plt Count Sodium Potassium Chloride Carbon Dioxide BUN Creatinine Random Glucose Lactic Acid Creatine Kinase Creatine Kinase Index CK-MB (CK-2) Troponin I Total Amylase Lipase Urine Blood 3+ H Urine Nitrite Negative Ur Leukocyte Esterase 3+ H Stool Occult Blood Positive Acetone, Qual Negative L 05/23/19 13:50 CXR: RLL increased marking, ? infiltrate 05/23/19 13:57 CT head, abd and pelvis 05/23/19 15:50 BP decreased again after 2 L NS Pt has a bed in ICU Ctrl line to be placed by Dr Harden Attempt made to place right IJ unsuccessful Dr Harden to place femoral line Will start Levophed clinical impression: severe CT: PORTAL VENOUS AIR ISCHEMIC BOWEL LIKELY Will consult surgery 05/23/19 16:[address] Yun by Dr. Fulton Are hydrating now Awaiting ICU bed Signed out to Dr Vu in the event of patient decompensation in the ER *DC/Admit/Observation/Transfer Diagnosis at time of Disposition: LINDSAY (acute kidney injury) Sepsis Qualifiers: Sepsis type: sepsis due to unspecified organism Qualified Code(s): A41.9 - Sepsis, unspecified organism UTI (urinary tract infection) Qualifiers: Urinary tract infection type: site unspecified Hematuria presence: with hematuria Qualified Code(s): N39.0 - Urinary tract infection, site not specified - Discharge Dispostion Condition at time of disposition: Guarded Decision to Admit order: Yes - Referrals - Patient Instructions - Post Discharge Activity
[2019-05-23 12:36] LABS: VENOUS PC02 48.1 mmHg (41-51); VENOUS PO2 33.8 mmHg (30-40)
[2019-05-23 12:39] LABS: BASO % 0.2 % (0-2.0); EOS % 0.1 % (0-4.5); HEMATOCRIT 38.7 % (32.4-45.2); HEMOGLOBIN 12.1 GM/dL (10.7-15.3); MCH 26.6 pg (25.7-33.7); MCHC 31.3 g/dl (32.0-36.0); MEAN CELL VOLUME 85.1 fl (80-96); MEAN PLT VOLUME 9.2 fl (7.5-11.1); MONO % 6.6 % (3.8-10.2); NEUT % 68.1 % (42.8-82.8); PLATELET COUNT 257 K/MM3 (134-434); RBC 4.54 M/mm3 (3.60-5.2); RDW 14.9 % (11.6-15.6); WHITE BLOOD COUNT 16.2 K/mm3 (4.0-10.0)
[2019-05-23 12:40] LABS: VENOUS PH 7.16 (7.31-7.41)
[2019-05-23] MEDS ORDERED: SODIUM CHLORIDE 1,000 ML IV STA (12:52)
[2019-05-23] MEDS ORDERED: VANCOMYCIN 750 MG in DEXTROSE 5%-WATER - 250 ML IVPB ONE (12:53)
[2019-05-23] MEDS ORDERED: PIPERACILLIN/TAZOB 3.375 GM 3.375 GM in DEXTROSE 5%-WATER - 50 ML IVPB ONE (12:53)
[2019-05-23 12:55] LABS: INR 1.16 (0.83-1.09); PROTHROMBIN TIME (PATIENT) 13.7 SEC (9.7-13.0)
[2019-05-23 12:58] LABS: ACTIVATED PTT 30.7 SECONDS (25.2-36.5)
--- NOTE | 2019-05-23 13:06 | PDOC ---
History of Present Illness - General Chief Complaint: Altered Mental Status Stated Complaint: AMS Time Seen by Provider: 05/23/19 12:21 History Source: Family (Son), Primary Care Provider Exam Limitations: Clinical Condition, Dementia - History of Present Illness Initial Comments: Pt is an 88 yo F, with PMH of emphysema, NIDDM, HTN, and dementia, who is presenting from PCP office via EMS for AMS from baseline and cloudy urine. Pt is accompanied by her son and has dementia at baseline with limited ability to tell history. Pt was found this AM with AMS (last known normal 8pm last night), with cloudy urine in her diaper. Pt can normally eat by herself and is minimally conversant, but pt was not able to speak this AM and was leaning to her left side. Pt was taken to Dr. Garcia's office (PCP) who sent her in for concern of CVA vs UTI sepsis. Sons deny any n/v or diarrhea. Pt unable to provide other ROS. Pt has no established advanced directives, son stated "do whatever you need to do, you have my permission." Will call son Mario ([phone]) or David ([phone]) with updates as necessary. Allergies: NKDA PCP: Dr. Garcai Social: No cigarette, alcohol, or drug use. No recent travel or sick contacts. Surgical: no relevant history. Family: no relevant history. 05/23/19 14:16 Past History - Travel Traveled outside of the country in the last 30 days: No Close contact w/someone who was outside of country & ill: No - Past Medical History Allergies/Adverse Reactions: Allergies Allergy/AdvReac Type Severity Reaction Status Date / Time No Known Allergies Allergy Verified 05/23/19 12:12 Home Medications: Ambulatory Orders Amlodipine Besylate [Norvasc -] 2.5 mg PO DAILY 04/04/17 Lisinopril [Prinivil] 5 mg PO DAILY 04/04/17 Memantine HCl [Namenda -] 10 mg PO BID 04/04/17 Oxybutynin Chloride [Ditropan -] 5 mg PO DAILY 04/04/17 metFORMIN HCL [Glucophage -] 500 mg PO BID 04/04/17 Donepezil HCl [Aricept -] 10 mg PO DAILY #30 tablet 04/07/17 Rosuvastatin [Crestor -] 10 mg PO DAILY 08/09/17 COPD: No Dementia: Yes (ALZHEIMERS) Diabetes: Yes HTN: Yes - Suicide/Smoking/Psychosocial Hx Smoking History: Never smoked Have you smoked in the past 12 months: No Number of Cigarettes Smoked Daily: 5 If you are a former smoker, when did you quit?: 2016 'Breaking Loose' booklet given: 04/05/17 Hx Alcohol Use: No Drug/Substance Use Hx: No Substance Use Type: None Review of Systems - Review of Systems Able to Perform ROS?: No (limited (from sons)) Constitutional: Yes: Weight Stable. No: Chills, Fever Respiratory: No: Cough, Shortness of Breath ABD/GI: No: Diarrhea, Poor Appetite, Poor Fluid Intake, Vomiting Integumentary: No: Rash Psychiatric: No: Sleep Pattern Change Endocrine: No: Change in Weight Hematologic/Lymphatic: No: Anemia, Blood Clots, Easy Bleeding, Easy Bruising *Physical Exam - Vital Signs Last Vital Signs Temp Pulse Resp BP Pulse Ox 100.4 F H 93 H 16 80/40 L 96 05/23/19 12:10 05/23/19 12:10 05/23/19 12:10 05/23/19 12:10 05/23/19 12:10 - Physical Exam Comments: Rectal temp 100.4, hypoxic to high 80% O2 on RA, improved to 95% on 4L NC. Pt has cachectic body habitus, appears ill. Extremities contracted. Pt alert with spontaneous eye opening, withdrawing extremities. Pt does not follow commands at baseline. wellness health coach difficult to assess as pt does not follow commands. Withdraws all extremities, with limited but equal strength. No midline spinal tenderness, step-offs, or crepitus. Head normocephalic, atraumatic. Eyes PERRLA, EOMI. Oropharynx without erythema or exudates, no LAD b/l. No nasal congestion, hearing intact. Clear heart sounds, S1/S2, no JVD, b/l pedal edema, or heart murmur. Diminished breath sounds in L lung base, long expiratory phase. No other wheezing or crackles noted. Diffuse grimace to palpation in all abdominal areas, withdrawing from pressure. Abdomen soft, non-distended, and with normoactive bowel sounds. Mild rash in perineal area, no other skin breakdown or pressure ulcers noted. Skin without jaundice. 05/23/19 13:03 ED Treatment Course - LABORATORY CBC & Chemistry Diagram: 05/23/19 12:21 05/23/19 12:18 - ADDITIONAL ORDERS Additional order review: Laboratory Results 05/23/19 05/23/19 05/23/19 12:43 12:21 12:21 PT with INR 13.70 H INR 1.16 H PTT (Actin FS) 30.7 VBG pH 7.16 L* POC VBG pCO2 48.1 POC VBG pO2 33.8 VBG HCO3 16.4 L VBG O2 Sat (Brandi) 45.1 L VBG Base Excess -11.9 L POC Glucometer 304 05/23/19 12:43 POC Glucometer 304 Medical Decision Making - Critical Care Time Total Critical Care Time (minutes): 60 Critical Care Statement: The care of this patient involved high complexity decision making to prevent further life threatening deterioration of the patient 's condition and/or to evaluate & treat vital organ system(s) failure or risk of failure. - Medical Decision Making Pt was seen at bedside, also will be seen by attending Dr. Ku. Pt presenting from PCP office via EMS for AMS from baseline and cloudy urine. Pt is accompanied by her son and has dementia at baseline with limited ability to tell history. Pt was found this AM with AMS (last known normal 8pm last night), with cloudy urine in her diaper. Pt can normally eat by herself and is minimally conversant, but pt was not able to speak this AM and was leaning to her left side. Pt was taken to Dr. Garcia's office (PCP) who sent her in for concern of CVA vs UTI sepsis. Sons deny any n/v or diarrhea. Pt unable to provide other ROS. Considering sepsis (UTI, pneumonia) vs toxic-metabolic vs hyperglycemia/HHS/DKA vs CVA vs ACS. Ordered work-up including sepsis order set, CT abd/pelvis and head. Provided 2 L IV NS (sepsis fluids), 1 g ofirmev, 750 mg IV vanc and 3.375 g IV zosyn. Will continue to reassess pt and monitor for symptomatic improvement. ECG: NSR, intervals WNL (HR 85, KS 144, QRS 82, QTC 459). TWIs in I and aVL, T wave flattening in V1-V2. No significant changes from prior ECG (March 2017). 05/23/19 13:06 CBC: WBC 16 CMP: LINDSAY (BUN, Cr 58/3.8) VBG showed acidosis, pH 7.14 UA infected, +LE and blood Trop 0.31, will repeat after IVF hydration. Lactic 7.6, will repeat in 2 hours Bedside US showed good heart contractility, small renal cysts, B-lines at L lung , completely compressed IVC. Pt admitted to ICU under Dr. Richardson and Dr. Garcia due to acidosis, sepsis, AMS. Consult orders placed for cardiology (increased troponin, likely demand with no EKG changes), renal (LINDSAY) and speech consult. MAP improving with IVF hydration, no need for central access at this time. Pt being taken for CT scans as she is now more stable. 05/23/19 13:56 05/23/19 14:02 *DC/Admit/Observation/Transfer Diagnosis at time of Disposition: LINDSAY (acute kidney injury) Sepsis Qualifiers: Sepsis type: sepsis due to unspecified organism Qualified Code(s): A41.9 - Sepsis, unspecified organism UTI (urinary tract infection) Qualifiers: Urinary tract infection type: site unspecified Hematuria presence: with hematuria Qualified Code(s): N39.0 - Urinary tract infection, site not specified ; R31.9 - Hematuria, unspecified - Discharge Dispostion Condition at time of disposition: Guarded Decision to Admit order: Yes - Referrals - Patient Instructions - Post Discharge Activity
[2019-05-23] MEDS ORDERED: PIPERACILLIN/TAZOB 3.375 GM 3.375 GM/50 ML BAG IVPB ONE (13:11)
[2019-05-23 13:15] LABS: ALBUMIN 3.1 g/dl (3.4-5.0); BILIRUBIN,TOTAL 0.4 mg/dL (0.2-1); CALCIUM 9.1 mg/dL (8.5-10.1); CREATININE 3.8 mg/dL (0.55-1.3); POTASSIUM 4.9 mmol/L (3.5-5.1); TOT PROT 6.8 g/dl (6.4-8.2)
[2019-05-23 13:18] LABS: URINE APPEARANCE TURBID; URINE BILIRUBIN 2+ (NEGATIVE); URINE COLOR DK YELLOW; URINE GLUCOSE (UA) NEGATIVE (NEGATIVE); URINE KETONE 1+ (NEGATIVE); URINE LEUK ESTERASE 3+ (NEGATIVE); URINE NITRITE NEGATIVE (NEGATIVE); URINE PROTEIN 2+ (NEGATIVE)
--- NOTE | 2019-05-23 13:27 | HP ---
Admitting History and Physical - Primary Care Physician PCP: Keny Garcia - Admission Chief Complaint: AMS History of Present Illness: Patient is an 88 y/o female with past medical history of Dementia, Diabetes, HTN. Patient was sent to ER from PCP office. Patient son noticed that she was altered from baseline this morning and leaning to the left. He brought her to her PCP who noticed dark cloudy urine and sent to ER for further workup. In ER patient noticed to be hypotension, responsive to deep stimuli, rectal temp 100.4F. Labs show leukocytosis, LA 7.6, elevated BUN/Cr, UA with 3+ leukocytes. 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 Cardiovascular: Yes: HTN Endocrine: Yes: Diabetes Mellitus - Smoking History Smoking history: Never smoked Have you smoked in the past 12 months: No Aproximately how many cigarettes per day: 5 If you are a former smoker, when did you quit?: 2016 - Alcohol/Substance Use Hx Alcohol Use: No - Social History Usual Living Arrangement: Yes: With Child ADL: Family Assistance History of Recent Travel: No Home Medications - Allergies Allergies/Adverse Reactions: Allergies Allergy/AdvReac Type Severity Reaction Status Date / Time No Known Allergies Allergy Verified 05/23/19 12:12 - Home Medications Home Medications: Ambulatory Orders Amlodipine Besylate [Norvasc -] 2.5 mg PO DAILY 04/04/17 Lisinopril [Prinivil] 5 mg PO DAILY 04/04/17 Memantine HCl [Namenda -] 10 mg PO BID 04/04/17 Oxybutynin Chloride [Ditropan -] 5 mg PO DAILY 04/04/17 metFORMIN HCL [Glucophage -] 500 mg PO BID 04/04/17 Donepezil HCl [Aricept -] 10 mg PO DAILY #30 tablet 04/07/17 Rosuvastatin [Crestor -] 10 mg PO DAILY 08/09/17 Review of Systems Unable to obtain ROS, reason: 2/2 mental status Physical Examination Vital Signs: Vital Signs Temperature 100.4 F H 05/23/19 12:10 Pulse Rate 93 H 05/23/19 12:10 Respiratory Rate 16 05/23/19 12:10 Blood Pressure 80/40 L 05/23/19 12:10 O2 Sat by Pulse Oximetry (%) 96 05/23/19 12:10 Constitutional: Yes: No Distress, Other (lethargic) Eyes: Yes: Conjunctiva Clear HENT: Yes: Atraumatic Neck: Yes: Supple Cardiovascular: Yes: Regular Rate and Rhythm Respiratory: Yes: Diminished, On Nasal O2 Gastrointestinal: Yes: Normal Bowel Sounds, Soft Renal/: Yes: Incontinence Musculoskeletal: Yes: Muscle Weakness Extremities: Yes: WNL Edema: No Neurological: Yes: Lethargy Labs: CBC, BMP 05/23/19 12:21 05/23/19 12:18 Problem List - Problems (1) HTN (hypertension) Assessment/Plan: -BP meds on hold due to hypotension Code(s): I10 - ESSENTIAL (PRIMARY) HYPERTENSION (2) Diabetes mellitus Assessment/Plan: -BGM ACHS -Metformin -ISS Code(s): E11.9 - TYPE 2 DIABETES MELLITUS WITHOUT COMPLICATIONS (3) Dementia Assessment/Plan: -Donepazil -Head CT scan negative Code(s): F03.90 - UNSPECIFIED DEMENTIA WITHOUT BEHAVIORAL DISTURBANCE (4) Sepsis Assessment/Plan: -ICU consult -LA 7.6 -Vancomycin and Zosyn in ER -ID consult -WBC 16.2 -UA 3+ leukocyte esterase -BC and UC pending -1L NS bolus given in ER -tylenol prn for fever Code(s): A41.9 - SEPSIS, UNSPECIFIED ORGANISM Qualifiers: Sepsis type: sepsis due to unspecified organism Qualified Code(s): A41.9 - Sepsis, unspecified organism (5) Failure to thrive Code(s): [id number] - Qualifiers: Failure to thrive age range: in adult Qualified Code(s): R62.7 - Adult failure to thrive (6) Prerenal azotemia Assessment/Plan: -Renal consult -Renal US -BUN/Cr 58/3.8 Code(s): R79.89 - OTHER SPECIFIED ABNORMAL FINDINGS OF BLOOD CHEMISTRY (7) Elevated troponin Assessment/Plan: -troponin 0.31 -repeat troponin -cardiology consult Code(s): R74.8 - ABNORMAL LEVELS OF OTHER SERUM ENZYMES (8) OB + stool Assessment/Plan: -ABdomen and Pelvic CT scan -GI consult -Hg 12.1 -monitor Hg daily Code(s): R19.5 - OTHER FECAL ABNORMALITIES Assessment/Plan problem list dvt ppx
[2019-05-23 14:02] LABS: ANISOCYTOSIS 0; MACROCYTOSIS 0; PLATELET ESTIMATE NORMAL
[2019-05-23] MEDS ORDERED: PANTOPRAZOLE SODIUM 40 MG VIAL IVPUSH ONE (14:22)
--- NOTE | 2019-05-23 15:01 | CONSULT ---
Consultation: REQUESTING PROVIDER: Dr. Harden CONSULT REQUEST: We have been asked to medically evaluate this patient for ( specify). HISTORY OF PRESENT ILLNESS: 88F with PMH of emphysema, NIDDM, HTN, and dementia , sent from Dr. Garcia's office via EMS for altered mental status from baseline and cloudy, frothy urine. Son is at bedside and found her to be significantly more altered than her baseline. Last known normal was 8am The patient can usually feed herself at baseline and able to speak but whern she was found this morning her eyes were closed and and wasn't responding to vocal stimuli, keeping her eye closed. REVIEW OF SYSTEMS: Unable to assess, patient non-vocal PHYSICAL EXAMINATION Vital Signs - 24 hr 05/23/19 12:10 Temperature 100.4 F H Pulse Rate 93 H Respiratory 16 Rate Blood Pressure 80/40 L O2 Sat by Pulse 96 Oximetry (%) GENERAL: Responding to pain only, localizing. eyes closed, non-verbal. HEAD: Normal with no signs of trauma. EYES: eyes closed, Pupils equal, round and reactive to light, extraocular movements intact, sclera anicteric, conjunctiva clear. EARS, NOSE, THROAT: Dry oropharynx, thick, salivary secretions at the mouth. NECK: Normal range of motion, supple without lymphadenopathy, JVD, or masses. LUNGS: Faint wheezes, hyperresonant. HEART: Regular rate and rhythm, normal S1 and S2 without murmur, rub or gallop. ABDOMEN: tender suprapubic abdomen, patient grimacing. MUSCULOSKELETAL: not assessable UPPER EXTREMITIES:multiple small ecchymoses over both arms. LOWER EXTREMITIES: 2+ pulses, warm, well-perfused. No calf tenderness. No peripheral edema. NEUROLOGICAL: Altered, non-verbal, localizing pain. SKIN: Skin tenting, dry. Laboratory Results - last 24 hr 05/23/19 05/23/19 05/23/19 12:18 12:18 12:21 WBC 16.2 H RBC 4.54 Hgb 12.1 Hct 38.7 D MCV 85.1 MCH 26.6 MCHC 31.3 L RDW 14.9 Plt Count 257 D MPV 9.2 Absolute Neuts (auto) 11.0 H Neutrophils % 68.1 Neutrophils % (Manual) 38.3 L Band Neutrophils % 24.4 Lymphocytes % 25.0 D Lymphocytes % (Manual) 33.0 Monocytes % 6.6 Monocytes % (Manual) 2 L Eosinophils % 0.1 D Eosinophils % (Manual) 0.0 Basophils % 0.2 Basophils % (Manual) 1.7 Myelocytes % (Man) 0 Promyelocytes % (Man) 0 Blast Cells % (Manual) 0 Nucleated RBC % 0 Metamyelocytes 0 Hypochromia 0 Platelet Estimate Normal Polychromasia 0 Poikilocytosis 1+ Anisocytosis 0 Microcytosis 0 Macrocytosis 0 PT with INR INR PTT (Actin FS) VBG pH POC VBG pCO2 POC VBG pO2 VBG HCO3 VBG O2 Sat (Brandi) VBG Base Excess Sodium 137 Potassium 4.9 Chloride 103 Carbon Dioxide 18 L Anion Gap 16 BUN 58.0 H Creatinine 3.8 H Est GFR (CKD-EPI)AfAm 11.76 Est GFR (CKD-EPI)NonAf 10.15 POC Glucometer Random Glucose 345 H* Lactic Acid Calcium 9.1 Total Bilirubin 0.4 AST 24 ALT 27 Alkaline Phosphatase 105 Creatine Kinase 284 H Creatine Kinase Index 1.1 CK-MB (CK-2) 3.1 No Result Required. Troponin I 0.31 H Total Protein 6.8 Albumin 3.1 L Total Amylase 156 H Lipase 69 L Urine Color Urine Appearance Urine pH Ur Specific [place] Urine Protein Urine Glucose (UA) Urine Ketones Urine Blood Urine Nitrite Urine Bilirubin Urine Urobilinogen Ur Leukocyte Esterase Stool Occult Blood Acetone, Qual 05/23/19 05/23/19 05/23/19 12:21 12:21 12:21 WBC RBC Hgb Hct MCV MCH MCHC RDW Plt Count MPV Absolute Neuts (auto) Neutrophils % Neutrophils % (Manual) Band Neutrophils % Lymphocytes % Lymphocytes % (Manual) Monocytes % Monocytes % (Manual) Eosinophils % Eosinophils % (Manual) Basophils % Basophils % (Manual) Myelocytes % (Man) Promyelocytes % (Man) Blast Cells % (Manual) Nucleated RBC % Metamyelocytes Hypochromia Platelet Estimate Polychromasia Poikilocytosis Anisocytosis Microcytosis Macrocytosis PT with INR 13.70 H INR 1.16 H PTT (Actin FS) 30.7 VBG pH 7.16 L* POC VBG pCO2 48.1 POC VBG pO2 33.8 VBG HCO3 16.4 L VBG O2 Sat (Brandi) 45.1 L VBG Base Excess -11.9 L Sodium Potassium Chloride Carbon Dioxide Anion Gap BUN Creatinine Est GFR (CKD-EPI)AfAm Est GFR (CKD-EPI)NonAf POC Glucometer Random Glucose Lactic Acid 7.6 H* Calcium Total Bilirubin AST ALT Alkaline Phosphatase Creatine Kinase Creatine Kinase Index CK-MB (CK-2) Troponin I Total Protein Albumin Total Amylase Lipase Urine Color Urine Appearance Urine pH Ur Specific [place] Urine Protein Urine Glucose (UA) Urine Ketones Urine Blood Urine Nitrite Urine Bilirubin Urine Urobilinogen Ur Leukocyte Esterase Stool Occult Blood Acetone, Qual 05/23/19 05/23/19 05/23/19 12:21 12:43 12:59 WBC RBC Hgb Hct MCV MCH MCHC RDW Plt Count MPV Absolute Neuts (auto) Neutrophils % Neutrophils % (Manual) Band Neutrophils % Lymphocytes % Lymphocytes % (Manual) Monocytes % Monocytes % (Manual) Eosinophils % Eosinophils % (Manual) Basophils % Basophils % (Manual) Myelocytes % (Man) Promyelocytes % (Man) Blast Cells % (Manual) Nucleated RBC % Metamyelocytes Hypochromia Platelet Estimate Polychromasia Poikilocytosis Anisocytosis Microcytosis Macrocytosis PT with INR INR PTT (Actin FS) VBG pH POC VBG pCO2 POC VBG pO2 VBG HCO3 VBG O2 Sat (Brandi) VBG Base Excess Sodium Potassium Chloride Carbon Dioxide Anion Gap BUN Creatinine Est GFR (CKD-EPI)AfAm Est GFR (CKD-EPI)NonAf POC Glucometer 304 Random Glucose Lactic Acid Calcium Total Bilirubin AST ALT Alkaline Phosphatase Creatine Kinase Creatine Kinase Index CK-MB (CK-2) Troponin I Total Protein Albumin Total Amylase Lipase Urine Color Dk yellow Urine Appearance Turbid Urine pH 5.0 Ur Specific [place] 1.021 Urine Protein 2+ H Urine Glucose (UA) Negative Urine Ketones 1+ H Urine Blood 3+ H Urine Nitrite Negative Urine Bilirubin 2+ H Urine Urobilinogen 1.0 Ur Leukocyte Esterase 3+ H Stool Occult Blood Acetone, Qual Negative L 05/23/19 13:00 WBC RBC Hgb Hct MCV MCH MCHC RDW Plt Count MPV Absolute Neuts (auto) Neutrophils % Neutrophils % (Manual) Band Neutrophils % Lymphocytes % Lymphocytes % (Manual) Monocytes % Monocytes % (Manual) Eosinophils % Eosinophils % (Manual) Basophils % Basophils % (Manual) Myelocytes % (Man) Promyelocytes % (Man) Blast Cells % (Manual) Nucleated RBC % Metamyelocytes Hypochromia Platelet Estimate Polychromasia Poikilocytosis Anisocytosis Microcytosis Macrocytosis PT with INR INR PTT (Actin FS) VBG pH POC VBG pCO2 POC VBG pO2 VBG HCO3 VBG O2 Sat (Brandi) VBG Base Excess Sodium Potassium Chloride Carbon Dioxide Anion Gap BUN Creatinine Est GFR (CKD-EPI)AfAm Est GFR (CKD-EPI)NonAf POC Glucometer Random Glucose Lactic Acid Calcium Total Bilirubin AST ALT Alkaline Phosphatase Creatine Kinase Creatine Kinase Index CK-MB (CK-2) Troponin I Total Protein Albumin Total Amylase Lipase Urine Color Urine Appearance Urine pH Ur Specific [place] Urine Protein Urine Glucose (UA) Urine Ketones Urine Blood Urine Nitrite Urine Bilirubin Urine Urobilinogen Ur Leukocyte Esterase Stool Occult Blood Positive Acetone, Qual Active Medications Generic Name Dose Route Start Last Admin Trade Name Beto PRN Reason Stop Dose Admin Donepezil HCl 10 mg 05/24/19 10:00 Aricept - PO DAILY AGUS Memantine 10 mg 05/23/19 22:00 Namenda - PO BID AGUS Metformin HCl 500 mg 05/23/19 16:30 Glucophage - PO BIDAC AGUS Oxybutynin Chloride 5 mg 05/24/19 10:00 Ditropan - PO DAILY AGUS Rosuvastatin Calcium 10 mg 05/24/19 22:00 Crestor - PO HS AGUS ASSESSMENT/PLAN: 88F with PMH of emphysema, NIDDM, HTN, and dementia, sent from Dr. Garcia's office via EMS for altered mental status from baseline and cloudy, frothy urine. Obstructive pattern on Ct abdomen - Severe Sepsis, probably secondary to UTI -QSOFA:2 points, high risk. - 2L NS + maintenance LR in the ED with brief improvement of BP before worsening. - Lactic acid 7.6 > 6.8 in the span of 2 hours after 2L NS - Antibiotics started Vanc-zosyn due to 3+ leukocytes and turbid urine -Tylenol for fever - GI: Acute ischemic bowel/ileus, less likely SBO as per radiology read of CT abdomen -Portal venous air/gas seen iin the left hepatic lobe. - Dr. Yun consulted for possible surgery -+ stool occult blood - Cardiovascular - Hemodynamically unstable at this time. - Central line being placed. - Will start on Levofed 0.5 mcg/kg/min IV then titrate up if needed. - Give additional LR bolus - EKG - Diabetes - Continue Metformin - HLD - Continue Crestor - Alzheimer's - Continue Donepezil and Mementine Dispo: We will continue to follow the patient. Thank you for this consultative opportunity. Huey Fulton MD PGY3 Resident in Emergency Medicine ICU Consult for May 2019 Problem List - Problems (1) LINDSAY (acute kidney injury) Code(s): N17.9 - ACUTE KIDNEY FAILURE, UNSPECIFIED (2) DNR (do not resuscitate) discussion Code(s): Z71.89 - OTHER SPECIFIED COUNSELING (3) Sepsis Code(s): A41.9 - SEPSIS, UNSPECIFIED ORGANISM Qualifiers: Sepsis type: sepsis due to unspecified organism Qualified Code(s): A41.9 - Sepsis, unspecified organism Visit type - Emergency Visit Emergency Visit: Yes ED Registration Date: 05/23/19 Care time: The patient presented to the Emergency Department on the above date and was hospitalized for further evaluation of their emergent condition. - New Patient This patient is new to me today: Yes Date on this admission: 05/26/19 - Critical Care Critical Care patient: Yes Total Critical Care Time (in minutes): 35 Critical Care Statement: The care of this patient involved high complexity decision making to prevent further life threatening deterioration of the patient 's condition and/or to evaluate & treat vital organ system(s) failure or risk of failure.
[2019-05-23] MEDS ORDERED: LACTATED RINGERS SOLUTION 1,000 ML/1,000 ML INFUS.BAG IV SCH (15:15)
[2019-05-23] MEDS ORDERED: NOREPINEPHRINE BITARTRATE 4,000 MCG in DEXTROSE 5%-WATER - 496 ML IV SCH (15:45)
[2019-05-23] MEDS ORDERED: LACTATED RINGERS SOLUTION 1,000 ML/1,000 ML INFUS.BAG IV STA (16:03)
--- NOTE | 2019-05-23 16:04 | CONSULT ---
Consult Consult Specialty:: General Surgery Reason for Consultation:: abdominal pain - History of Present Illness Chief Complaint: found down at home History of Present Illness: 88 yo female PMH Dementia, Diabetes, HTN Patient was sent to ER from PCP office. She was found complaining of abdominal pain this morning, she was in her usual state of health last night. Patient son noticed that she was altered from baseline this morning and leaning to the left. She has a poor functional status at baseline (She is carried from bed to chair and to meals, she eats sparingly, she doesn't recognize family and rarely speaks) He brought her to her PCP who noticed dark cloudy urine and sent to ER for further workup. In ER patient noticed to be hypotension 70/50s HR90, responsive to deep stimuli, rectal temp 100.4F. Labs show leukocytosis >16K, Lactic Acid 7.6, elevated BUN/ Cr, UA with 3+ leukocytes, +troponin 0.3. CTscan of the abdomen shows portal venous gas, and scattered bowel edema. We were called to assess. 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 Cardio/Vascular: Yes: HTN Endocrine: Yes: Diabetes Mellitus - Alcohol/Substance Use Hx Alcohol Use: No History of Substance Use: reports: None - Smoking History Smoking history: Former smoker Have you smoked in the past 12 months: No Aproximately how many cigarettes per day: 5 If you are a former smoker, when did you quit?: 2016 - Social History Usual Living Arrangement: With Child ADL: Family Assistance History of Recent Travel: No Home Medications - Allergies Allergies/Adverse Reactions: Allergies Allergy/AdvReac Type Severity Reaction Status Date / Time No Known Allergies Allergy Verified 05/23/19 12:12 - Home Medications Home Medications: Ambulatory Orders Amlodipine Besylate [Norvasc -] 2.5 mg PO DAILY 04/04/17 Lisinopril [Prinivil] 5 mg PO DAILY 04/04/17 Memantine HCl [Namenda -] 10 mg PO BID 04/04/17 Oxybutynin Chloride [Ditropan -] 5 mg PO DAILY 04/04/17 metFORMIN HCL [Glucophage -] 500 mg PO BID 04/04/17 Donepezil HCl [Aricept -] 10 mg PO DAILY #30 tablet 04/07/17 Rosuvastatin [Crestor -] 10 mg PO DAILY 08/09/17 Review of Systems - Review of Systems Constitutional: reports: Fever. denies: Chills Eyes: denies: Blind Spots, Recent Change in Vision HENT: denies: Ear Discharge, Ear Pain Neck: denies: Swollen Glands, Tenderness Cardiovascular: denies: Chest Pain, Palpitations Respiratory: denies: Cough, SOB Gastrointestinal: reports: Abdominal Pain, Bloating. denies: Constipation, Diarrhea Breasts: reports: No Symptoms Reported. denies: Pain Musculoskeletal: denies: Extremity Pain, Muscle Weakness Integumentary: denies: Pruritis, Rash Neurological: reports: Confusion. denies: Seizure, Syncope Endocrine: denies: Unexplained Weight Gain, Unexplained Weight Loss Hematology/Lymphatic: denies: Easily Bruised, Excessive Bleeding Psychiatric: denies: Anxiety, Depression, Suicidal Physical Exam Vital Signs: Vital Signs Temperature 100.4 F H 05/23/19 12:10 Pulse Rate 80 05/23/19 15:19 Respiratory Rate 22 H 05/23/19 15:19 Blood Pressure 72/45 L 05/23/19 15:19 O2 Sat by Pulse Oximetry (%) 99 05/23/19 15:19 Vital Signs Period Temp Pulse Resp BP Sys/Villagran Pulse Ox Last 24 Hr 100.4 F 77-93 16-26 72-100/40-46 96-99 Constitutional: Yes: Calm, Moderate Distress, Thin Eyes: Yes: Conjunctiva Clear, EOM Intact HENT: Yes: Atraumatic, Normocephalic Neck: Yes: Supple, Trachea Midline Cardiovascular: Yes: Regular Rate and Rhythm, S1, S2 Respiratory: Yes: Regular, CTA Bilaterally Gastrointestinal: Yes: Soft, Hypoactive Bowel Sounds, Tenderness (diffuse tenderness), Tenderness, Rebound ...Rectal Exam: Yes: Guaiac Positive, Hemorrhoids/External, Hemorrhoids/Internal , Sphincter Tone Normal. No: Mass Renal/: No: CVA Tenderness - Left, CVA Tenderness - Right Breast(s): No: Mass, Skin Changes Extremities: No: Cool, Cyanosis Edema: No Peripheral Pulses WNL: Yes Integumentary: No: Jaundice, Rash, Tattoos Neurological: Yes: Alert, Confusion. No: Oriented Psychiatric: Yes: Alert. No: Oriented Labs: CBC, BMP 05/23/19 12:21 05/23/19 12:18 Imaging - Results Cat Scan: Report Reviewed (portal gas, mispalced mariano, scattered bowel edema and obstructive bowel pattern), Image Reviewed Problem List - Problems (1) Acute intestinal ischemia Assessment/Plan: 88yo female MMP with clear evidence of intestinal ischemia, likely secondary to acute on chronic ischemic event compromising circulation to the SMA distribution or distal. Septic shock, not on vasopressor support, possible IL, current being managed in ICU. Had a discussion with the patients two sons, grandson (who is a physician), and her sister. We clarified her clinical condition and what we are currently aware of based on labs and imaging. Her survival from a major abdominal exploration was estimated at 30%. NSQIP surgical risk calculator reflected above average risk in all categories, serious complications >35% and any complication >45%. The did not want to proceed with surgery. The are opting for comfort care. I concurred with the DNR/ DNI form completed 05/23/19. Monitored setting IVF resuscitation IV antibiotics Adequate analgesia Palliative care Recall surgery as needed. Code(s): K55.059 - ACUTE ISCHEMIA OF INTESTINE, PART AND EXTENT UNSPECIFIED (2) LINDSAY (acute kidney injury) Code(s): N17.9 - ACUTE KIDNEY FAILURE, UNSPECIFIED (3) Abdominal pain in female patient Code(s): R10.9 - UNSPECIFIED ABDOMINAL PAIN (4) Acute generalized abdominal pain Code(s): R10.84 - GENERALIZED ABDOMINAL PAIN (5) Dementia Code(s): F03.90 - UNSPECIFIED DEMENTIA WITHOUT BEHAVIORAL DISTURBANCE (6) Diabetes mellitus Code(s): E11.9 - TYPE 2 DIABETES MELLITUS WITHOUT COMPLICATIONS (7) Elevated troponin Code(s): R74.8 - ABNORMAL LEVELS OF OTHER SERUM ENZYMES (8) HTN (hypertension) Code(s): I10 - ESSENTIAL (PRIMARY) HYPERTENSION (9) Sepsis Code(s): A41.9 - SEPSIS, UNSPECIFIED ORGANISM Qualifiers: Sepsis type: sepsis due to unspecified organism Qualified Code(s): A41.9 - Sepsis, unspecified organism
[2019-05-23] MEDS ORDERED: metFORMIN HCL 500 MG TABLET (FP) PO SCH (16:30)
--- NOTE | 2019-05-23 16:43 | EKG ---
Test Reason : Blood Pressure : / mmHG Vent. Rate : 085 BPM Atrial Rate : 085 BPM P-R Int : 144 ms QRS Dur : 082 ms QT Int : 386 ms P-R-T Axes : 057 052 115 degrees QTc Int : 459 ms NORMAL SINUS RHYTHM NONSPECIFIC T WAVE ABNORMALITY ABNORMAL ECG WHEN COMPARED WITH ECG OF 04-APR-2017 15:02, Confirmed by GENNY NAIR MD ([id number]) on 05/23/2019 4:43:00 PM Referred By: Confirmed By:GENNY NAIR MD
--- NOTE | 2019-05-23 17:06 | CONSULT ---
Consult Consult Specialty:: Nephrology Reason for Consultation:: LINDSAY - History of Present Illness Chief Complaint: altered mental status History of Present Illness: Pt is an 88 year old female with pmhx of dm, htn, emphysema, htn, and dementia who was sent in for altered mental status and cloudy urine. She was found to be in acute renal failure and I was called to evaluate her. She was also found to have lactic acidosis. She is unable to give history. She is lethargic. Pt is unable to give history. ER record and chart was reviewed. Discussed case with ER team. 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 Cardio/Vascular: Yes: HTN Endocrine: Yes: Diabetes Mellitus - Alcohol/Substance Use Hx Alcohol Use: No History of Substance Use: reports: None - Smoking History Smoking history: Never smoked Have you smoked in the past 12 months: No Aproximately how many cigarettes per day: 5 If you are a former smoker, when did you quit?: 2016 - Social History Usual Living Arrangement: With Child ADL: Family Assistance History of Recent Travel: No Home Medications - Allergies Allergies/Adverse Reactions: Allergies Allergy/AdvReac Type Severity Reaction Status Date / Time No Known Allergies Allergy Verified 05/23/19 12:12 - Home Medications Home Medications: Ambulatory Orders Amlodipine Besylate [Norvasc -] 2.5 mg PO DAILY 04/04/17 Lisinopril [Prinivil] 5 mg PO DAILY 04/04/17 Memantine HCl [Namenda -] 10 mg PO BID 04/04/17 Oxybutynin Chloride [Ditropan -] 5 mg PO DAILY 04/04/17 metFORMIN HCL [Glucophage -] 500 mg PO BID 04/04/17 Donepezil HCl [Aricept -] 10 mg PO DAILY #30 tablet 04/07/17 Rosuvastatin [Crestor -] 10 mg PO DAILY 08/09/17 Family Disease History - Family Disease History Family History: Denies Review of Systems Unable to obtain ROS, reason: pt lethargic - Review of Systems Constitutional: reports: Malaise Eyes: reports: No Symptoms HENT: reports: No Symptoms Cardiovascular: reports: No Symptoms Respiratory: reports: No Symptoms Genitourinary: reports: Other (smell in urine) Neurological: reports: Change in LOC Endocrine: reports: No Symptoms Physical Exam Vital Signs: Vital Signs Temperature 100.4 F H 05/23/19 12:10 Pulse Rate 80 05/23/19 16:47 Respiratory Rate 26 H 05/23/19 16:47 Blood Pressure 93/46 L 05/23/19 16:47 O2 Sat by Pulse Oximetry (%) 99 05/23/19 15:19 Constitutional: Yes: Calm HENT: Yes: WNL Neck: Yes: Supple Cardiovascular: Yes: WNL, S1, S2 Respiratory: Yes: On Nasal O2 Gastrointestinal: Yes: Soft Renal/: Yes: Incontinence Musculoskeletal: Yes: Muscle Weakness Edema: No Integumentary: Yes: WNL Neurological: Yes: Lethargy Labs: CBC, BMP 05/23/19 12:21 05/23/19 12:18 Laboratory Tests 04/06/17 04/07/17 05/23/19 06:00 06:00 12:18 WBC Hgb Plt Count Sodium 137 Potassium 4.9 Chloride 103 Carbon Dioxide 18 L Anion Gap 16 BUN 58.0 H Creatinine 1.0 1.0 3.8 H POC Glucometer Random Glucose 345 H* Lactic Acid Calcium 9.1 Creatine Kinase 284 H 05/23/19 05/23/19 05/23/19 12:21 12:21 12:43 WBC 16.2 H Hgb 12.1 Plt Count 257 D Sodium Potassium Chloride Carbon Dioxide Anion Gap BUN Creatinine POC Glucometer 304 Random Glucose Lactic Acid 7.6 H* Calcium Creatine Kinase 05/23/19 14:26 WBC Hgb Plt Count Sodium Potassium Chloride Carbon Dioxide Anion Gap BUN Creatinine POC Glucometer Random Glucose Lactic Acid 6.8 H* Calcium Creatine Kinase Imaging - Results Chest X-ray: Report Reviewed Cat Scan: Report Reviewed Problem List - Problems (1) LINDSAY (acute kidney injury) Code(s): N17.9 - ACUTE KIDNEY FAILURE, UNSPECIFIED (2) Dementia Code(s): F03.90 - UNSPECIFIED DEMENTIA WITHOUT BEHAVIORAL DISTURBANCE (3) Diabetes mellitus Code(s): E11.9 - TYPE 2 DIABETES MELLITUS WITHOUT COMPLICATIONS (4) Elevated troponin Code(s): R74.8 - ABNORMAL LEVELS OF OTHER SERUM ENZYMES Assessment/Plan Current Medications Generic Name Dose Route Start Last Admin Trade Name Freq PRN Reason Stop Dose Admin Lactated Ringer's 1,000 ml in 1,000 mls @ 125 mls/hr 05/23/19 15:15 Lactated Ringers Solution IV ASDIR [facility] Norepinephrine Bitartrate 4, 500 mls @ 37.5 mls/hr 05/23/19 15:45 000 mcg/ Dextrose IV TITR [facility] Protocol 5 MCG/MIN Insulin Aspart 1 vial 05/23/19 22:00 Novolog Vial Sliding Scale - SQ ACHS [facility] Protocol Microbiology Laboratory Tests 05/23/19 12:59 Urine Protein 2+ H Urine Ketones 1+ H Urine Blood 3+ H Impression 1. LINDSAY 2. lactic acidosis 3. ischemic bowel 4. hypotension 5. shock 6. hx htn 7. DM 8. dementia Plan - send cultures - start fluids - place mariano - start pressors as pt is hypotensive, target map 65 - sugery eval for possible ischemic bowel - trend lactic acid - follow cultures - abx per primary team, renal dose - will need ICU admission - discussed with ER team - prognosis guarded - monitor urine output Dr Beckford
[2019-05-23] MEDS ORDERED: PANTOPRAZOLE SODIUM 40 MG VIAL ONE (17:15)
[2019-05-23] MEDS ORDERED: DEXTROSE 5%-NORMAL SALINE 1,000 ML IV SCH (17:30)
--- NOTE | 2019-05-23 17:49 | PN ---
Teaching Attending Note Name of Resident: Huey Futlon ATTENDING PHYSICIAN STATEMENT I saw and evaluated the patient. I reviewed the resident's note and discussed the case with the resident. I agree with the resident's findings and plan as documented. SUBJECTIVE: Patient seen and examined in the ER. AMS. (+) ischemic bowel. Borderline hemodynamics. Surgery to evaluate. Intake & Output 05/20/19 05/21/19 05/22/19 05/23/19 23:59 23:59 23:59 23:59 Weight 90 lb Last Vital Signs Temp Pulse Resp BP Pulse Ox 100.4 F H 80 26 H 93/46 L 99 05/23/19 12:10 05/23/19 16:47 05/23/19 16:47 05/23/19 16:47 05/23/19 15:19 Active Medications Lactated Ringer's (Lactated Ringers Solution) 1,000 ml in 1,000 mls @ 125 mls/ hr IV ASDIR AGUS Last Admin: 05/23/19 17:31 Dose: 125 mls/hr Norepinephrine Bitartrate 4, (000 mcg/ Dextrose) 500 mls @ 37.5 mls/hr IV TITR AGUS; Protocol Dextrose/Sodium Chloride (D5-Ns -) 1,000 mls @ 75 mls/hr IV ASDIR AGUS Insulin Aspart (Novolog Vial Sliding Scale -) 1 vial SQ ACHS AGUS; Protocol GENERAL: Poorky responsive HEAD: Normal with no signs of trauma. EYES: sclera anicteric, conjunctiva clear. EARS, NOSE, THROAT: Dry oropharynx, thick, salivary secretions at the mouth. NECK: Normal range of motion, supple without lymphadenopathy, JVD, or masses. LUNGS: Scattered rhonchi HEART: Tachycardia, (-) murmur, rub or gallop. ABDOMEN: tender, distended, hypoactive BS MUSCULOSKELETAL: WNL UPPER EXTREMITIES:multiple small ecchymoses over both arms. LOWER EXTREMITIES: 2+ pulses, warm, well-perfused. No calf tenderness. No peripheral edema. NEUROLOGICAL: Altered, non-verbal, localizing pain. SKIN: Skin tenting, dry. Laboratory Results - last 24 hr 05/23/19 05/23/19 05/23/19 12:18 12:18 12:21 WBC 16.2 H RBC 4.54 Hgb 12.1 Hct 38.7 D MCV 85.1 MCH 26.6 MCHC 31.3 L RDW 14.9 Plt Count 257 D MPV 9.2 Absolute Neuts (auto) 11.0 H Neutrophils % 68.1 Neutrophils % (Manual) 38.3 L Band Neutrophils % 24.4 Lymphocytes % 25.0 D Lymphocytes % (Manual) 33.0 Monocytes % 6.6 Monocytes % (Manual) 2 L Eosinophils % 0.1 D Eosinophils % (Manual) 0.0 Basophils % 0.2 Basophils % (Manual) 1.7 Myelocytes % (Man) 0 Promyelocytes % (Man) 0 Blast Cells % (Manual) 0 Nucleated RBC % 0 Metamyelocytes 0 Hypochromia 0 Platelet Estimate Normal Polychromasia 0 Poikilocytosis 1+ Anisocytosis 0 Microcytosis 0 Macrocytosis 0 PT with INR INR PTT (Actin FS) VBG pH POC VBG pCO2 POC VBG pO2 VBG HCO3 VBG O2 Sat (Brandi) VBG Base Excess Sodium 137 Potassium 4.9 Chloride 103 Carbon Dioxide 18 L Anion Gap 16 BUN 58.0 H Creatinine 3.8 H Est GFR (CKD-EPI)AfAm 11.76 Est GFR (CKD-EPI)NonAf 10.15 POC Glucometer Random Glucose 345 H* Lactic Acid Calcium 9.1 Total Bilirubin 0.4 AST 24 ALT 27 Alkaline Phosphatase 105 Creatine Kinase 284 H Creatine Kinase Index 1.1 CK-MB (CK-2) 3.1 No Result Required. Troponin I 0.31 H Total Protein 6.8 Albumin 3.1 L Total Amylase 156 H Lipase 69 L Urine Color Urine Appearance Urine pH Ur Specific [place] Urine Protein Urine Glucose (UA) Urine Ketones Urine Blood Urine Nitrite Urine Bilirubin Urine Urobilinogen Ur Leukocyte Esterase Stool Occult Blood Acetone, Qual 05/23/19 05/23/19 05/23/19 12:21 12:21 12:21 WBC RBC Hgb Hct MCV MCH MCHC RDW Plt Count MPV Absolute Neuts (auto) Neutrophils % Neutrophils % (Manual) Band Neutrophils % Lymphocytes % Lymphocytes % (Manual) Monocytes % Monocytes % (Manual) Eosinophils % Eosinophils % (Manual) Basophils % Basophils % (Manual) Myelocytes % (Man) Promyelocytes % (Man) Blast Cells % (Manual) Nucleated RBC % Metamyelocytes Hypochromia Platelet Estimate Polychromasia Poikilocytosis Anisocytosis Microcytosis Macrocytosis PT with INR 13.70 H INR 1.16 H PTT (Actin FS) 30.7 VBG pH 7.16 L* POC VBG pCO2 48.1 POC VBG pO2 33.8 VBG HCO3 16.4 L VBG O2 Sat (Brandi) 45.1 L VBG Base Excess -11.9 L Sodium Potassium Chloride Carbon Dioxide Anion Gap BUN Creatinine Est GFR (CKD-EPI)AfAm Est GFR (CKD-EPI)NonAf POC Glucometer Random Glucose Lactic Acid 7.6 H* Calcium Total Bilirubin AST ALT Alkaline Phosphatase Creatine Kinase Creatine Kinase Index CK-MB (CK-2) Troponin I Total Protein Albumin Total Amylase Lipase Urine Color Urine Appearance Urine pH Ur Specific [place] Urine Protein Urine Glucose (UA) Urine Ketones Urine Blood Urine Nitrite Urine Bilirubin Urine Urobilinogen Ur Leukocyte Esterase Stool Occult Blood Acetone, Qual 05/23/19 05/23/19 05/23/19 12:21 12:43 12:59 WBC RBC Hgb Hct MCV MCH MCHC RDW Plt Count MPV Absolute Neuts (auto) Neutrophils % Neutrophils % (Manual) Band Neutrophils % Lymphocytes % Lymphocytes % (Manual) Monocytes % Monocytes % (Manual) Eosinophils % Eosinophils % (Manual) Basophils % Basophils % (Manual) Myelocytes % (Man) Promyelocytes % (Man) Blast Cells % (Manual) Nucleated RBC % Metamyelocytes Hypochromia Platelet Estimate Polychromasia Poikilocytosis Anisocytosis Microcytosis Macrocytosis PT with INR INR PTT (Actin FS) VBG pH POC VBG pCO2 POC VBG pO2 VBG HCO3 VBG O2 Sat (Brandi) VBG Base Excess Sodium Potassium Chloride Carbon Dioxide Anion Gap BUN Creatinine Est GFR (CKD-EPI)AfAm Est GFR (CKD-EPI)NonAf POC Glucometer 304 Random Glucose Lactic Acid Calcium Total Bilirubin AST ALT Alkaline Phosphatase Creatine Kinase Creatine Kinase Index CK-MB (CK-2) Troponin I Total Protein Albumin Total Amylase Lipase Urine Color Dk yellow Urine Appearance Turbid Urine pH 5.0 Ur Specific [place] 1.021 Urine Protein 2+ H Urine Glucose (UA) Negative Urine Ketones 1+ H Urine Blood 3+ H Urine Nitrite Negative Urine Bilirubin 2+ H Urine Urobilinogen 1.0 Ur Leukocyte Esterase 3+ H Stool Occult Blood Acetone, Qual Negative L 05/23/19 13:00 WBC RBC Hgb Hct MCV MCH MCHC RDW Plt Count MPV Absolute Neuts (auto) Neutrophils % Neutrophils % (Manual) Band Neutrophils % Lymphocytes % Lymphocytes % (Manual) Monocytes % Monocytes % (Manual) Eosinophils % Eosinophils % (Manual) Basophils % Basophils % (Manual) Myelocytes % (Man) Promyelocytes % (Man) Blast Cells % (Manual) Nucleated RBC % Metamyelocytes Hypochromia Platelet Estimate Polychromasia Poikilocytosis Anisocytosis Microcytosis Macrocytosis PT with INR INR PTT (Actin FS) VBG pH POC VBG pCO2 POC VBG pO2 VBG HCO3 VBG O2 Sat (Brandi) VBG Base Excess Sodium Potassium Chloride Carbon Dioxide Anion Gap BUN Creatinine Est GFR (CKD-EPI)AfAm Est GFR (CKD-EPI)NonAf POC Glucometer Random Glucose Lactic Acid Calcium Total Bilirubin AST ALT Alkaline Phosphatase Creatine Kinase Creatine Kinase Index CK-MB (CK-2) Troponin I Total Protein Albumin Total Amylase Lipase Urine Color Urine Appearance Urine pH Ur Specific [place] Urine Protein Urine Glucose (UA) Urine Ketones Urine Blood Urine Nitrite Urine Bilirubin Urine Urobilinogen Ur Leukocyte Esterase Stool Occult Blood Positive Acetone, Qual ASSESSMENT/PLAN: Sepsis due to Ischemic Bowel Emphysema NIDDM HTN Dementia IVF ABX coverage Strict I & O Surgical evaluation Pressors to maintain MAP > 65 Glycemic control Requires ICU monitoring Prognosis appears grave Dr Richardson Critical care time spent in reviewing chart, evaluating patient and formulating plan - 36 minutes.
[2019-05-23] MEDS ORDERED: PIPERACILLIN/TAZOB 2.25 GM 2.25 GM in DEXTROSE 5%-WATER - 50 ML IVPB SCH (18:00)
--- NOTE | 2019-05-23 18:03 | CON.CARD ---
Consult Consult Specialty:: Cardiology Referred by:: Dr. Garcia Reason for Consultation:: Elevated troponin - History of Present Illness Chief Complaint: Altered mental status History of Present Illness: 88 year-old woman with a PMHx of HTN, NIDDM, emphysema, and dementia brought to ED 05/23/19 for altered mental status and cloudy urine. The patient has dementia at baseline with limited ability to tell history. She was found to have acute altered mental status and only respond to painful stimuli with cloudy urine in her diaper. The patient was hypotensive with BP 72/45, fever, elevated WBC, lactic acidosis , LINDSAY and evidence of UTI. CT abdomen 05/23/19 revealed portal vein air/gas within the left hepatic lobe. RUQ bowel wall edema, suggestive acute ischemia. Troponin and CK are mildly elevated (0.31 and 284). ECG shows sinus rhythm without acute ischemic changes. Seen by critical care. - History Source History Provided By: Medical Record Limitations to Obtaining History: No Limitations - Past Medical History [employer]: Yes: Dementia Cardio/Vascular: Yes: HTN Endocrine: Yes: Diabetes Mellitus - Alcohol/Substance Use Hx Alcohol Use: No History of Substance Use: reports: None - Smoking History Smoking history: Former smoker Have you smoked in the past 12 months: No Aproximately how many cigarettes per day: 5 If you are a former smoker, when did you quit?: 2016 - Social History Usual Living Arrangement: With Child ADL: Family Assistance History of Recent Travel: No Home Medications - Allergies Allergies/Adverse Reactions: Allergies Allergy/AdvReac Type Severity Reaction Status Date / Time No Known Allergies Allergy Verified 05/23/19 12:12 - Home Medications Home Medications: Ambulatory Orders Amlodipine Besylate [Norvasc -] 2.5 mg PO DAILY 04/04/17 Lisinopril [Prinivil] 5 mg PO DAILY 04/04/17 Memantine HCl [Namenda -] 10 mg PO BID 04/04/17 Oxybutynin Chloride [Ditropan -] 5 mg PO DAILY 04/04/17 metFORMIN HCL [Glucophage -] 500 mg PO BID 04/04/17 Donepezil HCl [Aricept -] 10 mg PO DAILY #30 tablet 04/07/17 Rosuvastatin [Crestor -] 10 mg PO DAILY 08/09/17 Vital Signs: Vital Signs Temperature 100.4 F H 05/23/19 12:10 Pulse Rate 77 05/23/19 17:51 Respiratory Rate 26 H 05/23/19 16:47 Blood Pressure 100/40 L 05/23/19 17:51 O2 Sat by Pulse Oximetry (%) 99 05/23/19 15:19 General: Well developed. Poorly nourished. Unresponsive. Head: Normocephalic. Atraumatic, Neck: Supple. No JVD. No bruits. Heart: Normal S1, S2: Regular rhythm and rate. II/ REBECCA. No gallop or rub. Lungs: Symmetrical air entry. No crackle. No wheezing or rhonchi. Abdomen: Soft. Bowel sound positive. Extremities: No edema. - Other Data Labs, Other Data: CBC, BMP 05/23/19 12:21 05/23/19 12:18 INR, PTT INR 1.16 (0.83-1.09) H 05/23/19 12:21 Troponin, BNP 05/23/19 12:18 Troponin I 0.31 H Troponin, BNP 05/23/19 12:18 Troponin I 0.31 H Assessment/Plan 88 year-old woman with a PMHx of HTN, NIDDM, emphysema, and dementia brought to ED 05/23/19 for altered mental status and cloudy urine. The patient was hypotensive with BP 72/45, fever, elevated WBC, lactic acidosis , LINDSAY and evidence of UTI. CT abdomen 05/23/19 revealed portal vein air/gas within the left hepatic lobe. RUQ bowel wall edema, suggestive acute ischemia. Troponin and CK are mildly elevated (0.31 and 284). ECG shows sinus rhythm without acute ischemic changes. Seen by critical care. NSTEMI in the setting of septic shock and LINDSAY: Type II CT with likely underline CAD. 1) Hemodynamic support as per critical team. 2) Echocardiogram to evaluate LV function and wall motion. 2) May need systemic anticoagulation for acute ischemic bowel. 4) Conservative cardiac care. 5) Poor prognosis. We will follow the patient.
[2019-05-23] MEDS ORDERED: morphine CARPU-JECT 2 MG/1 ML DISP.SYRIN IVPUSH PRN (19:01)
[2019-05-23] MEDS ORDERED: MORPHINE SULFATE 2 MG/ML VIAL IVPUSH PRN (19:03)
--- NOTE | 2019-05-23 19:06 | PN ---
Progress Note (short form) - Note Progress Note: ID CONSULT DICTATED SEPSIS/ SEPTIC SHOCK ISCHEMIC BOWEL UTI LACCTIC ACIDOSIS LINDSAY LEUKOCYTOSIS PENDING C/S EMPIRIC ZOSYN/FLAGYL/VANCO ADJUSTED FOR LINDSAY PROGNOSIS POOR
[2019-05-23] MEDS: MORPHINE SULFATE/0.9% NACL/PF 100 MG/100 ML BAG IVPB SCH (19:27)
--- NOTE | 2019-05-23 19:46 | CONS ---
DATE OF CONSULTATION: DATE OF DICTATION: 05/23/2019 INFECTIOUS DISEASE CONSULTATION HISTORY OF PRESENT ILLNESS: The patient is an 88-year-old female who was evaluated for septic shock. The patient was seen in the intensive care unit on an emergent basis. The history was obtained from the chart, as she cannot give a history. She was sent to the emergency room from her primary care physician's office after she was noted to have altered mental status and dark cloudy urine. According to the notes, she had been normal on the evening prior to admission. Over the ensuing 24 hours, she developed worsening lethargy. She was seen in her primary care physician's office and was referred to the emergency room. In the ER, she was noted to be hypotensive with an elevated white blood cell count. She was noted to have a low grade fever. Patient required aggressive IV fluid hydration and pressors. CAT scan of the head was negative for acute infarct or bleed. A CAT scan of the abdomen and pelvis was performed and showed right lower quadrant bowel ischemia with partial possible bowel obstruction and a left lower chest mass. She was empirically treated with vancomycin and Zosyn. The patient presently is in the intensive care unit. She is hypotensive. She is not verbally responsive and unable to offer any additional details. PAST MEDICAL HISTORY: Positive for dementia, hypertension, diabetes mellitus. ALLERGIES: No known allergies. SOCIAL HISTORY: The patient resides at home. She is a former smoker, nondrinker. SYSTEMS REVIEW: Neurologic: Positive for altered mental status. Cardiac: Negative for chest pain or palpitations. Respiratory: Negative for cough or sputum production. Gastrointestinal: Negative vomiting or diarrhea. Genitourinary: Positive for urinary tract infection. LABORATORY DATA: White count 16.2, hematocrit 38.7, platelet count 257, BUN 58, creatinine 3.8. Urine 3+ leukocyte esterase, lactic acid 7.6. Liver enzymes normal. PHYSICAL EXAMINATION: General: On exam, she is awake, she is tachypneic on nasal cannula. She appears pale. Vital signs: Temperature 100.4, blood pressure 100/40, pulse 72 regular, respirations 20 per minute. HEENT: Sclerae anicteric. Cardiovascular: Heart sounds S1, S2. Lungs: Grossly clear, poor inspiratory effort. Abdomen: Soft, distended, no tenderness elicited. Extremities: Negative for edema. IMPRESSION: 1. Septic shock, likely secondary to gastrointestinal source. 2. Ischemic bowel. 3. Lactic acidosis. 4. Urinary tract infection. 5. Acute kidney injury. 6. leukocytosis. 7. Dementia. Await sepsis workup. Empiric antibiotic coverage with Zosyn, Flagyl, and vancomycin adjusted for renal failure. Surgical evaluation. Prognosis is poor. Continue hemodynamic support. ICU monitoring. . Rhiannon [id number]
[2019-05-23] MEDS ORDERED: INSULIN SLIDING SCALE (NOVOLOG) 1 VIAL SQ SCH (22:00)
[2019-05-23] MEDS ORDERED: MEMANTINE HCL 10 MG TABLET (FP) PO SCH (22:00)
[2019-05-23 23:01] VITALS: BMI 19.8
[2019-05-24] MEDS: LORazepam 2 MG/ML SDV VIAL IVPUSH SCH ×2 (00:57→08:17)
--- NOTE | 2019-05-24 05:34 | PN ---
Progress Note (short form) - Note Progress Note: Discussed goals of care with family extensively. They understood the patient's current condition and elected to make patient comfort care measures only. This includes no chest compressions, CPR, or intubation. They elected not to draw labs going forward, no antibiotics or pressors. Only Morphine/ativan for comfort care measures.
--- NOTE | 2019-05-24 07:00 | PN ---
Progress Note, Physician Chief Complaint: PATIENT SEEN IN ICU EVENTS AND NOTES REVIEWED PATIENT UNDER COMFORT CARE FAMILY WITHDRAWING ALL LABS, HEROIC MEASURES DNR/DNI. - Current Medication List Current Medications: Active Medications Norepinephrine Bitartrate 4, (000 mcg/ Dextrose) 500 mls @ 37.5 mls/hr IV TITR AGUS; Protocol Last Admin: 05/23/19 19:24 Dose: Not Given Morphine Sulfate (Morphine 100mg/100ml-0.9% Nacl) 100 mg in 100 mls @ 1 mls/hr IVPB TITR AGUS; Protocol Last Infusion: 05/23/19 20:15 Dose: 7 mg/hr, 7 mls/hr Lorazepam (Ativan Injection -) 1 mg IVPUSH Q4H AGUS Last Admin: 05/24/19 00:57 Dose: Not Given Morphine Sulfate (Morphine Sulfate) 2 mg IVPUSH Q4H PRN PRN Reason: PAIN LEVEL 6-10 - Objective Vital Signs: Vital Signs Temperature 98.1 F 05/23/19 22:08 Pulse Rate 81 05/24/19 06:39 Respiratory Rate 10 05/24/19 06:39 Blood Pressure 115/66 05/23/19 18:08 O2 Sat by Pulse Oximetry (%) 99 05/23/19 22:08 Constitutional: Yes: Mild Distress Cardiovascular: Yes: Pulse Irregular Respiratory: Yes: Diminished, On Venti-Mask Gastrointestinal: Yes: Tenderness Genitourinary: Yes: Incontinence Musculoskeletal: Yes: Muscle Weakness Labs: CBC, BMP 05/23/19 12:21 05/23/19 12:18 INR, PTT INR 1.16 (0.83-1.09) H 05/23/19 12:21 Problem List - Problems (1) Acute intestinal ischemia Code(s): K55.059 - ACUTE ISCHEMIA OF INTESTINE, PART AND EXTENT UNSPECIFIED (2) Dementia Code(s): F03.90 - UNSPECIFIED DEMENTIA WITHOUT BEHAVIORAL DISTURBANCE (3) Peritonitis (acute) generalized Code(s): K65.0 - GENERALIZED (ACUTE) PERITONITIS (4) DNR (do not resuscitate) discussion Code(s): Z71.89 - OTHER SPECIFIED COUNSELING Assessment/Plan DISCUSSED WITH FAMILY SON FADY PATIENT TO BE UNDER COMFORT CARE SURGICAL PROCEDURE TO REPAIR INTESTINAL ISCHEMIA IS HIGH RISK. MORPHINE TITRATE TO COMFORT ATIVAN IV 02 SUPPORT CLERGY REFERRAL
[2019-05-24] MEDS ORDERED: OXYBUTYNIN CHLORIDE 5 MG TABLET PO SCH (10:00)
[2019-05-24] MEDS ORDERED: DONEPEZIL HCL 10 MG TABLET (FP) PO SCH (10:00)
--- NOTE | 2019-05-24 11:57 | PN ---
Progress Note, SCOW HAND - Note Progress Note: Chart reviewed, however, pt not assessed. Lethargic, on NRD, family at bedside. Comfort measures only. SEPSIS/ SEPTIC SHOCK ISCHEMIC BOWEL UTI LACCTIC ACIDOSIS LINDSAY LEUKOCYTOSIS
--- NOTE | 2019-05-24 13:15 | PN ---
Teaching Attending Note Name of Resident: Mario Chavarria ATTENDING PHYSICIAN STATEMENT I saw and evaluated the patient. I reviewed the resident's note and discussed the case with the resident. I agree with the resident's findings and plan as documented. SUBJECTIVE: Patient seen and examined in the ICU. Due to overall condition the family has decided on comfort measures only. She is currently comfortable on MS drip. Intake & Output 05/21/19 05/22/19 05/23/19 05/24/19 23:59 23:59 23:59 23:59 Intake Total 0 76 Output Total 100 50 Balance -100 26 Weight 98 lb 8 oz Last Vital Signs Temp Pulse Resp BP Pulse Ox 98.1 F 80 16 55/32 L 96 05/23/19 22:08 05/24/19 11:05 05/24/19 11:05 05/24/19 08:00 05/24/19 09:00 Active Medications Morphine Sulfate (Morphine 100mg/100ml-0.9% Nacl) 100 mg in 100 mls @ 1 mls/hr IVPB TITR AGUS; Protocol Last Infusion: 05/23/19 20:15 Dose: 7 mg/hr, 7 mls/hr Lorazepam (Ativan Injection -) 1 mg IVPUSH Q4H AGUS Last Admin: 05/24/19 08:17 Dose: Not Given Morphine Sulfate (Morphine Sulfate) 2 mg IVPUSH Q4H PRN PRN Reason: PAIN LEVEL 6-10 GENERAL: Poorly responsive HEAD: Normal with no signs of trauma. EYES: sclera anicteric, conjunctiva clear. EARS, NOSE, THROAT: Dry oropharynx, thick, salivary secretions at the mouth. NECK: supple without lymphadenopathy, JVD, or masses. LUNGS: Scattered rhonchi HEART: Tachycardia, (-) murmur, rub or gallop. ABDOMEN: distended, hypoactive BS MUSCULOSKELETAL: WNL UPPER EXTREMITIES:multiple small ecchymoses over both arms. LOWER EXTREMITIES: 2+ pulses, warm, well-perfused. No calf tenderness. No peripheral edema. NEUROLOGICAL: Altered, non-verbal SKIN: Skin tenting, dry. Laboratory Results - last 24 hr 05/23/19 05/23/19 05/23/19 12:18 12:18 12:21 Neutrophils % (Manual) 38.3 L Band Neutrophils % 24.4 Lymphocytes % (Manual) 33.0 Monocytes % (Manual) 2 L Eosinophils % (Manual) 0.0 Basophils % (Manual) 1.7 Myelocytes % (Man) 0 Promyelocytes % (Man) 0 Blast Cells % (Manual) 0 Nucleated RBC % 0 Metamyelocytes 0 Hypochromia 0 Platelet Estimate Normal Polychromasia 0 Poikilocytosis 1+ Anisocytosis 0 Microcytosis 0 Macrocytosis 0 VBG pH POC VBG pCO2 POC VBG pO2 VBG HCO3 VBG O2 Sat (Brandi) VBG Base Excess Sodium 137 Potassium 4.9 Chloride 103 Carbon Dioxide 18 L Anion Gap 16 BUN 58.0 H Creatinine 3.8 H Est GFR (CKD-EPI)AfAm 11.76 Est GFR (CKD-EPI)NonAf 10.15 Random Glucose 345 H* Lactic Acid Calcium 9.1 Total Bilirubin 0.4 AST 24 ALT 27 Alkaline Phosphatase 105 Creatine Kinase 284 H Creatine Kinase Index 1.1 CK-MB (CK-2) 3.1 No Result Required. Troponin I 0.31 H Total Protein 6.8 Albumin 3.1 L Total Amylase 156 H Lipase 69 L Urine Color Urine Appearance Urine pH Ur Specific [place] Urine Protein Urine Glucose (UA) Urine Ketones Urine Blood Urine Nitrite Urine Bilirubin Urine Urobilinogen Ur Leukocyte Esterase Stool Occult Blood Acetone, Qual Blood Type Antibody Screen 05/23/19 05/23/19 05/23/19 12:21 12:21 12:21 Neutrophils % (Manual) Band Neutrophils % Lymphocytes % (Manual) Monocytes % (Manual) Eosinophils % (Manual) Basophils % (Manual) Myelocytes % (Man) Promyelocytes % (Man) Blast Cells % (Manual) Nucleated RBC % Metamyelocytes Hypochromia Platelet Estimate Polychromasia Poikilocytosis Anisocytosis Microcytosis Macrocytosis VBG pH 7.16 L* POC VBG pCO2 48.1 POC VBG pO2 33.8 VBG HCO3 16.4 L VBG O2 Sat (Brandi) 45.1 L VBG Base Excess -11.9 L Sodium Potassium Chloride Carbon Dioxide Anion Gap BUN Creatinine Est GFR (CKD-EPI)AfAm Est GFR (CKD-EPI)NonAf Random Glucose Lactic Acid 7.6 H* Calcium Total Bilirubin AST ALT Alkaline Phosphatase Creatine Kinase Creatine Kinase Index CK-MB (CK-2) Troponin I Total Protein Albumin Total Amylase Lipase Urine Color Urine Appearance Urine pH Ur Specific [place] Urine Protein Urine Glucose (UA) Urine Ketones Urine Blood Urine Nitrite Urine Bilirubin Urine Urobilinogen Ur Leukocyte Esterase Stool Occult Blood Acetone, Qual Negative L Blood Type Antibody Screen 05/23/19 05/23/19 05/23/19 12:59 13:00 14:26 Neutrophils % (Manual) Band Neutrophils % Lymphocytes % (Manual) Monocytes % (Manual) Eosinophils % (Manual) Basophils % (Manual) Myelocytes % (Man) Promyelocytes % (Man) Blast Cells % (Manual) Nucleated RBC % Metamyelocytes Hypochromia Platelet Estimate Polychromasia Poikilocytosis Anisocytosis Microcytosis Macrocytosis VBG pH POC VBG pCO2 POC VBG pO2 VBG HCO3 VBG O2 Sat (Brandi) VBG Base Excess Sodium Potassium Chloride Carbon Dioxide Anion Gap BUN Creatinine Est GFR (CKD-EPI)AfAm Est GFR (CKD-EPI)NonAf Random Glucose Lactic Acid Calcium Total Bilirubin AST ALT Alkaline Phosphatase Creatine Kinase Creatine Kinase Index CK-MB (CK-2) Troponin I Total Protein Albumin Total Amylase Lipase Urine Color Dk yellow Urine Appearance Turbid Urine pH 5.0 Ur Specific [place] 1.021 Urine Protein 2+ H Urine Glucose (UA) Negative Urine Ketones 1+ H Urine Blood 3+ H Urine Nitrite Negative Urine Bilirubin 2+ H Urine Urobilinogen 1.0 Ur Leukocyte Esterase 3+ H Stool Occult Blood Positive Acetone, Qual Blood Type O POSITIVE Antibody Screen Negative 05/23/19 05/23/19 14:26 17:50 Neutrophils % (Manual) Band Neutrophils % Lymphocytes % (Manual) Monocytes % (Manual) Eosinophils % (Manual) Basophils % (Manual) Myelocytes % (Man) Promyelocytes % (Man) Blast Cells % (Manual) Nucleated RBC % Metamyelocytes Hypochromia Platelet Estimate Polychromasia Poikilocytosis Anisocytosis Microcytosis Macrocytosis VBG pH POC VBG pCO2 POC VBG pO2 VBG HCO3 VBG O2 Sat (Brandi) VBG Base Excess Sodium Potassium Chloride Carbon Dioxide Anion Gap BUN Creatinine Est GFR (CKD-EPI)AfAm Est GFR (CKD-EPI)NonAf Random Glucose Lactic Acid 6.8 H* Calcium Total Bilirubin AST ALT Alkaline Phosphatase Creatine Kinase Creatine Kinase Index CK-MB (CK-2) Troponin I Total Protein Albumin Total Amylase Lipase Urine Color Urine Appearance Urine pH Ur Specific [place] Urine Protein Urine Glucose (UA) Urine Ketones Urine Blood Urine Nitrite Urine Bilirubin Urine Urobilinogen Ur Leukocyte Esterase Stool Occult Blood Acetone, Qual Blood Type O POSITIVE Antibody Screen ASSESSMENT/PLAN: Sepsis due to Ischemic Bowel Emphysema NIDDM HTN Dementia MS for comfort / pain relief Supportive measures only has been requested by family Dr Rcihardson
--- NOTE | 2019-05-24 14:04 | PN ---
Progress Note, Physician History of Present Illness: Pt seen and examined at bedside. SHe is in the ICU. SHe will be on comfort care. - Current Medication List Current Medications: Active Medications Morphine Sulfate (Morphine 100mg/100ml-0.9% Nacl) 100 mg in 100 mls @ 1 mls/hr IVPB TITR [facility]US; Protocol Last Infusion: 05/23/19 20:15 Dose: 7 mg/hr, 7 mls/hr Lorazepam (Ativan Injection -) 1 mg IVPUSH Q4H [facility] Last Admin: 05/24/19 08:17 Dose: Not Given Morphine Sulfate (Morphine Sulfate) 2 mg IVPUSH Q4H PRN PRN Reason: PAIN LEVEL 6-10 - Objective Vital Signs: Vital Signs Temperature 98.1 F 05/23/19 22:08 Pulse Rate 80 05/24/19 11:05 Respiratory Rate 16 05/24/19 11:05 Blood Pressure 55/32 L 05/24/19 08:00 O2 Sat by Pulse Oximetry (%) 96 05/24/19 09:00 Constitutional: Yes: Calm Eyes: Yes: Conjunctiva Clear Cardiovascular: Yes: S1, S2 Respiratory: Yes: On Venti-Mask Gastrointestinal: Yes: Soft Genitourinary: Yes: [place] Present Musculoskeletal: Yes: Muscle Weakness Edema: No Neurological: Yes: Lethargy Labs: CBC, BMP 05/23/19 12:21 05/23/19 12:18 INR, PTT INR 1.16 (0.83-1.09) H 05/23/19 12:21 Problem List - Problems (1) LINDSAY (acute kidney injury) Code(s): N17.9 - ACUTE KIDNEY FAILURE, UNSPECIFIED (2) Dementia Code(s): F03.90 - UNSPECIFIED DEMENTIA WITHOUT BEHAVIORAL DISTURBANCE (3) Diabetes mellitus Code(s): E11.9 - TYPE 2 DIABETES MELLITUS WITHOUT COMPLICATIONS (4) Elevated troponin Code(s): R74.8 - ABNORMAL LEVELS OF OTHER SERUM ENZYMES Assessment/Plan Current Medications Generic Name Dose Route Start Last Admin Trade Name Freq PRN Reason Stop Dose Admin Morphine Sulfate 100 mg in 100 mls @ 1 mls/hr 05/23/19 19:00 05/23/19 20:15 Morphine 100mg/100ml-0.9% Nacl IVPB 7 mg/hr TITR [facility]US 7 mls/hr Infusion Protocol 1 MG/HR Lorazepam 1 mg 05/23/19 19:15 05/24/19 08:17 Ativan Injection - IVPUSH Not Given Q4H [facility] Morphine Sulfate 2 mg 05/23/19 19:03 Morphine Sulfate IVPUSH Q4H PRN PAIN LEVEL 6-10 Impression 1. LINDSAY 2. lactic acidosis 3. ischemic bowel 4. hypotension 5. shock 6. hx htn 7. DM 8. dementia Plan - pt now on comfort care - discussed with ICU - cont care per primary team - recall as needed Dr Beckford
--- NOTE | 2019-05-24 15:07 | PN ---
Physical Exam: SUBJECTIVE: Patient seen and examined at the bedside. Patient appeared comfortable with no labored breathing. Patient on comfort measures only. OBJECTIVE: Vital Signs Period Temp Pulse Resp BP Sys/Villagran Pulse Ox Last 24 Hr 97.9 F-98.1 F 77-95 10- 55-115/25-66 96-100 GENERAL: The patient is lying comfortable in bed with minimal response to verbal stimulation. HEAD: Normal with no signs of trauma. NECK: Trachea midline, full range of motion, supple. LUNGS: Patient does not give effort, coarse breath sounds throughout. Breath sounds equal. HEART: Regular rate and rhythm, S1, S2 without murmur, rub or gallop. ABDOMEN: Soft, nontender, nondistended, normoactive bowel sounds, no guarding, no rebound, no hepatosplenomegaly, no masses. EXTREMITIES: 1+ pulses, warm, well-perfused, no edema. NEUROLOGICAL: Cranial nerves II through XII grossly intact. Normal speech, gait not observed. PSYCH: Normal mood, normal affect. SKIN: Warm, dry, normal turgor, no rashes or lesions noted Laboratory Results - last 24 hr 05/23/19 05/23/19 05/23/19 14:26 14:26 17:50 Lactic Acid 6.8 H* Blood Type O POSITIVE O POSITIVE Antibody Screen Negative Active Medications Generic Name Dose Route Start Last Admin Trade Name Freq PRN Reason Stop Dose Admin Morphine Sulfate 100 mg in 100 mls @ 1 mls/hr 05/23/19 19:00 05/23/19 20:15 Morphine 100mg/100ml-0.9% Nacl IVPB 7 mg/hr TITR AGUS 7 mls/hr Infusion Protocol 1 MG/HR Lorazepam 1 mg 05/23/19 19:15 05/24/19 08:17 Ativan Injection - IVPUSH Not Given Q4H [facility] Morphine Sulfate 2 mg 05/23/19 19:03 Morphine Sulfate IVPUSH Q4H PRN PAIN LEVEL 6-10 ASSESSMENT/PLAN: Yue Sherman is an 88 year old female presenting with a possible SBO which was elected by the family not to be operated on and the patient is no comfort measures only. NEURO - receiving morphine and ativan for comfort and sedation CARDIO - comfort measures only RESPIRATORY - on oxygen for comfort RENAL - stable ID - no antibiotics FEN - comfort measures only - no labs - no medications DISPO - stable to be transferred to [facility]-surg floor Visit type - Emergency Visit Emergency Visit: No - New Patient This patient is new to me today: Yes Date on this admission: 05/24/19 - Critical Care Critical Care patient: No
[2019-05-24] MEDS ORDERED: ROSUVASTATIN CA 10 MG TABLET (FP) PO SCH (22:00)
[2019-05-24] MEDS: MORPHINE SULFATE/0.9% NACL/PF 100 MG/100 ML BAG IVPB SCH (23:42)
[2019-05-25] MEDS: LORazepam 2 MG/ML SDV VIAL IVPUSH SCH ×8 (00:07→22:20)
[2019-05-25] MEDS: MORPHINE SULFATE/0.9% NACL/PF 100 MG/100 ML BAG IVPB SCH ×2 (07:00→08:47)
[2019-05-25] MEDS ORDERED: MORPHINE SULFATE 2 MG/ML VIAL IVPUSH PRN (07:12)
--- NOTE | 2019-05-25 07:41 | PN ---
Progress Note, Physician Chief Complaint: Sepsis Ischemic Bowel LINDSAY History of Present Illness: Previous notes and events reviewed lethargic breathing with NRB mask non-verbal comfort measures only DNR/DNI - Current Medication List Current Medications: Active Medications Morphine Sulfate (Morphine 100mg/100ml-0.9% Nacl) 100 mg in 100 mls @ 1 mls/hr IVPB TITR AGUS; Protocol Lorazepam (Ativan Injection -) 1 mg IVPUSH Q4H [facility] Morphine Sulfate (Morphine Sulfate) 2 mg IVPUSH Q4H PRN PRN Reason: PAIN LEVEL 6-10 - Objective Vital Signs: Vital Signs Temperature 98.9 F 05/25/19 05:33 Pulse Rate 85 05/25/19 05:33 Respiratory Rate 10 05/25/19 05:33 Blood Pressure 60/24 L 05/25/19 05:33 O2 Sat by Pulse Oximetry (%) 100 05/24/19 21:00 Constitutional: Yes: Cachectic, Mild Distress HENT: Yes: Atraumatic Cardiovascular: Yes: Regular Rate and Rhythm Respiratory: Yes: Accessory Muscle Use, Other (NRB mask) Gastrointestinal: Yes: Hypoactive Bowel Sounds, Tenderness Genitourinary: Yes: [place] Present Musculoskeletal: Yes: Muscle Weakness Extremities: Yes: WNL Edema: No Neurological: Yes: Lethargy Labs: CBC, BMP 05/23/19 12:21 05/23/19 12:18 INR, PTT INR 1.16 (0.83-1.09) H 05/23/19 12:21 Problem List - Problems (1) HTN (hypertension) Code(s): I10 - ESSENTIAL (PRIMARY) HYPERTENSION (2) Diabetes mellitus Code(s): E11.9 - TYPE 2 DIABETES MELLITUS WITHOUT COMPLICATIONS (3) Dementia Code(s): F03.90 - UNSPECIFIED DEMENTIA WITHOUT BEHAVIORAL DISTURBANCE (4) Sepsis Code(s): A41.9 - SEPSIS, UNSPECIFIED ORGANISM Qualifiers: Sepsis type: sepsis due to unspecified organism Qualified Code(s): A41.9 - Sepsis, unspecified organism (5) Failure to thrive Code(s): [id number] - Qualifiers: Failure to thrive age range: in adult Qualified Code(s): R62.7 - Adult failure to thrive (6) Prerenal azotemia Code(s): R79.89 - OTHER SPECIFIED ABNORMAL FINDINGS OF BLOOD CHEMISTRY (7) Elevated troponin Code(s): R74.8 - ABNORMAL LEVELS OF OTHER SERUM ENZYMES (8) OB + stool Code(s): R19.5 - OTHER FECAL ABNORMALITIES Assessment/Plan problem list dvt ppx patient is comfort care DNR/DNI Morphine titration Ativan PRN no lab draws
[2019-05-25] MEDS ORDERED: PT OWN MED DRAWER 7, Y5N ONE ×2 (21:17→23:35)
[2019-05-26] MEDS: LORazepam 2 MG/ML SDV VIAL IVPUSH SCH ×5 (02:47→20:55)
[2019-05-26] MEDS: MORPHINE SULFATE/0.9% NACL/PF 100 MG/100 ML BAG IVPB SCH ×2 (06:18→07:53)
--- NOTE | 2019-05-26 17:33 | PN ---
Progress Note, Physician Chief Complaint: Sepsis Ischemic Bowel LINDSAY History of Present Illness: Currently receiving hospice care inpatient - Current Medication List Current Medications: Active Medications Morphine Sulfate (Morphine 100mg/100ml-0.9% Nacl) 100 mg in 100 mls @ 1 mls/hr IVPB TITR AGUS; Protocol Last Admin: 05/26/19 07:53 Dose: 7 mg/hr, 7 mls/hr Lorazepam (Ativan Injection -) 1 mg IVPUSH Q4H [facility]US Last Admin: 05/26/19 15:14 Dose: Not Given Morphine Sulfate (Morphine Sulfate) 2 mg IVPUSH Q4H PRN PRN Reason: PAIN LEVEL 6-10 - Objective Vital Signs: Vital Signs Temperature 98.2 F 05/26/19 05:57 Pulse Rate 91 H 05/26/19 05:57 Respiratory Rate 10 05/26/19 05:57 Blood Pressure 70/26 L 05/26/19 05:57 O2 Sat by Pulse Oximetry (%) 100 05/26/19 09:00 Constitutional: Yes: No Distress, Calm, Cachectic Cardiovascular: Yes: Regular Rate and Rhythm Respiratory: Yes: Regular Gastrointestinal: Yes: WNL Genitourinary: Yes: Incontinence Musculoskeletal: Yes: Muscle Weakness Edema: No Peripheral Pulses WNL: Yes Neurological: Yes: Pre-Existing Deficit Labs: CBC, BMP 05/23/19 12:21 05/23/19 12:18 INR, PTT INR 1.16 (0.83-1.09) H 05/23/19 12:21 Problem List - Problems (1) Hospice care patient Assessment/Plan: D-NR/DNI -Morphine titration -Ativan PRN -no lab draws -Vitals: temp only
[2019-05-26] MEDS ORDERED: ACETAMINOPHEN 650 MG SUPP.RECT PR PRN (17:35)
[2019-05-26] MEDS ORDERED: SCOPOLAMINE HYDROBROMIDE 1 PATCH PATCH.TD72 TD SCH (17:45)
[2019-05-27] MEDS: LORazepam 2 MG/ML SDV VIAL IVPUSH SCH ×4 (00:57→14:47)
[2019-05-27] MEDS: MORPHINE SULFATE/0.9% NACL/PF 100 MG/100 ML BAG IVPB SCH ×2 (01:37→10:23)
[2019-05-27 10:54] VITALS: BP 38/18; PULSE 68; TEMP 98.8
--- NOTE | 2019-05-27 12:26 | PN ---
Progress Note, Physician Chief Complaint: Sepsis Ischemic Bowel LINDSAY History of Present Illness: Currently receiving hospice care inpatient - Current Medication List Current Medications: Active Medications Acetaminophen (Tylenol Suppository -) 650 mg [place] Q4H PRN PRN Reason: FEVER Morphine Sulfate (Morphine 100mg/100ml-0.9% Nacl) 100 mg in 100 mls @ 1 mls/hr IVPB TITR AGUS; Protocol Last Admin: 05/27/19 10:23 Dose: 7 mg/hr, 7 mls/hr Lorazepam (Ativan Injection -) 1 mg IVPUSH Q4H [facility] Last Admin: 05/27/19 07:56 Dose: 1 mg Morphine Sulfate (Morphine Sulfate) 2 mg IVPUSH Q4H PRN PRN Reason: PAIN LEVEL 6-10 Scopolamine HBr (Transderm-Scop -) 1 patch TD Q72H [facility] Last Admin: 05/26/19 18:04 Dose: 1 patch - Objective Vital Signs: Vital Signs Temperature 98.8 F 05/27/19 10:00 Pulse Rate 68 05/27/19 10:00 Respiratory Rate 16 05/27/19 10:00 Blood Pressure 38/18 L 05/27/19 10:00 O2 Sat by Pulse Oximetry (%) 100 05/26/19 21:00 Constitutional: Yes: Well Nourished, No Distress, Calm Cardiovascular: Yes: Regular Rate and Rhythm Respiratory: Yes: Regular Gastrointestinal: Yes: WNL, Normal Bowel Sounds, Soft, Abdomen, Obese Genitourinary: Yes: WNL Musculoskeletal: Yes: WNL Extremities: Yes: WNL Edema: No Peripheral Pulses WNL: Yes Labs: CBC, BMP 05/23/19 12:21 05/23/19 12:18 INR, PTT INR 1.16 (0.83-1.09) H 05/23/19 12:21 Problem List - Problems (1) Hospice care patient Assessment/Plan: -DNR/DNI -Morphine titration -Ativan PRN -no lab draws -Vitals: temp only -Scopolamine patch -Acetaminophen supp Q4H PRN
--- NOTE | 2019-05-27 14:28 | PN ---
Progress Note (short form) - Note Progress Note: Called by RN that pt has passed. Seen pt, pronounced at 02:[address] Keny Garcia MD notified at 02:20PM. No pulses palpated. No heart rate on auscultation.
== END 2019-05-27 14:17 | disposition expired | DRG 871 ==
LOC: JER 12:06 → JERBED 12:31 → JICU 18:04 → J7W 05-24 19:54
PROVIDERS: ADMIT Family Medicine; ATTEND Family Medicine
PROC: 0T2BX0Z Change Drainage Device in Bladder, External Approach (ICD-10-PCS; principal; 2019-05-23)
PROC: 06HM33Z Insertion of Infusion Device into Right Femoral Vein, Percutaneous Approach (ICD-10-PCS; 2019-05-23)
DX: A41.9 Sepsis, unspecified organism (principal); K55.039 Acute (reversible) ischemia of large intestine, extent unspecified; I21.A1 Myocardial infarction type 2; K65.0 Generalized (acute) peritonitis; R65.21 Severe sepsis with septic shock; N17.9 Acute kidney failure, unspecified; E87.2 Acidosis; R64 Cachexia; K56.7 Ileus, unspecified; N39.0 Urinary tract infection, site not specified; Z68.1 Body mass index [BMI] 19.9 or less, adult; I95.9 Hypotension, unspecified; J43.9 Emphysema, unspecified; F03.90 Unspecified dementia, unspecified severity, without behavioral disturbance, psychotic disturbance, mood disturbance, and anxiety; E11.9 Type 2 diabetes mellitus without complications; R65.20 Severe sepsis without septic shock; I10 Essential (primary) hypertension; Z79.84 Long term (current) use of oral hypoglycemic drugs; Z87.891 Personal history of nicotine dependence; R09.02 Hypoxemia; I25.10 Atherosclerotic heart disease of native coronary artery without angina pectoris; Z66 Do not resuscitate; R62.7 Adult failure to thrive; R74.8 Abnormal levels of other serum enzymes
CPT/HCPCS: 36415; 70450-TC; 71045-TC-FY; 74176-TC; 80053; 81003; 82009; 82150; 82272; 82550; 82553; 82803; 82962; 83605; 83690; 84484; 85025; 85610; 85730; 86850; 86900; 86901; 87040; 87086; 87186; 93005; 93010; 99283-25; J7030